=== PATIENT | female | born 1930 | race Caucasian/White ===

== ENCOUNTER 2017-10-16 16:10 | Emergency (ER) | payer MEDICARE, OTHER ==
[2017-10-16] MEDS ORDERED: IBUPROFEN 600 MG TABLET PO ONE (16:45)
--- NOTE | 2017-10-16 16:49 | ER Document Report ---
ED General - General Chief Complaint: Fall Stated Complaint: LEG PAIN Time Seen by Provider: 10/16/17 16:22 Mode of Arrival: Ambulatory Information source: Patient Notes: 86 yr female hx of dementia presents with complaints of left leg pain chronically which worsened after a fall last night. pt dneies any fevers or chills, denies any back pain. pt admits to laying on the ground overnight due ot pain family member notes this is all chronic TRAVEL OUTSIDE OF THE [place] IN LAST 30 DAYS: No - HPI Onset: This morning Onset/Duration: Sudden Quality of pain: Achy Severity: Mild Pain Level: Denies Associated symptoms: None Exacerbated by: Denies Relieved by: Denies Similar symptoms previously: No Recently seen / treated by doctor: No - Related Data Allergies/Adverse Reactions: No Known Allergies Allergy (Verified 10/16/17 16:24) Past Medical History - Social History Smoking Status: Unknown if Ever Smoked Cigarette use (# per day): No Chew tobacco use (# tins/day): No Smoking Education Provided: No Family History: Reviewed & Not Pertinent Patient has suicidal ideation: No Patient has homicidal ideation: No - Past Medical History Cardiac Medical History: Reports: Hx Hypercholesterolemia, Hx Hypertension Renal/ Medical History: Denies: Hx Peritoneal Dialysis Past Surgical History: Reports: Hx Appendectomy, Hx Cholecystectomy - Immunizations Hx Diphtheria, Pertussis, Tetanus Vaccination: Yes Review of Systems - Review of Systems Notes: REVIEW OF SYSTEMS: CONSTITUTIONAL : Denies fever, chills, or sweats. Denies recent illness. EENT: Denies eye, ear, throat, or mouth pain or symptoms. Denies nasal or sinus congestion or discharge. Denies throat, tongue, or mouth swelling or difficulty swallowing. CARDIOVASCULAR: Denies chest pain. Denies palpitations or racing or irregular heart beat. Denies ankle edema. RESPIRATORY: Denies cough, cold, or chest congestion. Denies shortness of breath, difficulty breathing, or wheezing. GASTROINTESTINAL: Denies abdominal pain or distention. Denies nausea, vomiting , or diarrhea. Denies blood in vomitus, stools, or per rectum. Denies black, tarry stools. Denies constipation. GENITOURINARY: Denies difficulty urinating, painful urination, burning, frequency, blood in urine, or discharge. FEMALE GENITOURINARY: Denies vaginal bleeding, heavy or abnormal periods, irregular periods. Denies vaginal discharge or odor. MUSCULOSKELETAL: Left hip pain SKIN: Denies rash, lesions or sores. HEMATOLOGIC : Denies easy bruising or bleeding. LYMPHATIC: Denies swollen, enlarged glands. NEUROLOGICAL: Denies confusion or altered mental status. Denies passing out or loss of consciousness. Denies dizziness or lightheadedness. Denies headache. Denies weakness or paralysis or loss of use of either side. Denies problems with gait or speech. Denies sensory loss, numbness, or tingling. Denies seizures. PSYCHIATRIC: Denies anxiety or stress. Denies depression, suicidal ideation, or homicidal ideation. ALL OTHER SYSTEMS REVIEWED AND NEGATIVE. PHYSICAL EXAMINATION: GENERAL: Well-appearing, well-nourished and in no acute distress. HEAD: Atraumatic, normocephalic. EYES: Pupils equal round and reactive to light, extraocular movements intact, conjunctiva are normal. ENT: Nares patent, oropharynx clear without exudates. Moist mucous membranes. NECK: Normal range of motion, supple without lymphadenopathy LUNGS: Breath sounds clear to auscultation bilaterally and equal. No wheezes rales or rhonchi. HEART: Regular rate and rhythm without murmurs ABDOMEN: Soft, nontender, nondistended abdomen. No guarding, no rebound. No masses appreciated. Female : deferred Musculoskeletal: Normal range of motion, no pitting or edema. No cyanosis. Mild tenderness of left hip NEUROLOGICAL: Cranial nerves grossly intact. Normal speech, normal gait. Normal sensory, motor exams PSYCH: Normal mood, normal affect. SKIN: Warm, Dry, normal turgor, no rashes or lesions noted. Dictation was performed using [employer] voice recognition software Physical Exam - Vital signs Vitals: Resp Pulse Ox 15 98 10/16/17 16:17 10/16/17 16:17 Course - Re-evaluation Re-evalutation: 10/16/17 16:48 Patient's presentation is quite benign family member states this is her baseline as stated that I will treat the patient for her pain and perform some imaging as well as lab work to evaluate for rhabdo since she was laying on the floor and other causes of weakness 10/16/17 22:24 Lab work noted no significant abnormality, given that this is her baseline and pain resolved with Motrin I will discharge home with close follow-up imaging also noted no fracture patient was able to bear weight After performing a Medical Screening Examination, I estimate there is LOW risk for INTRACRANIAL HEMORRHAGE, UNSTABLE SPINE FRACTURE, CENTRAL CORD SYNDROME, CAUDA EQUINA, THORACIC AORTIC DISSECTION, PNEUMOTHORAX, PERFORATED BOWEL, RUPTURED ABDOMINAL AORTIC ANEURYSM, ACUTE TENDON RUPTURE, COMPARTMENT SYNDROME, or OPEN FRACTURE, thus I consider the discharge disposition reasonable. Also, there is no evidence or peritonitis, sepsis, or toxicity. I have reevaluated this patient multiple times and no significant life threatening changes are noted. The patient and I have discussed the diagnosis and risks, and we agree with discharging home to follow-up with their primary doctor with the understanding that symptoms and presentations can change. We also discussed returning to the Emergency Department immediately if new or worsening symptoms occur. We have discussed the symptoms which are most concerning (e.g., bloody stool, fever, changing or worsening pain, vomiting) that necessitate immediate return. - Vital Signs Vital signs: Temp Pulse Resp BP Pulse Ox 19 153/54 H 93 10/16/17 18:33 10/16/17 18:33 10/16/17 18:33 - Laboratory Result Diagrams: 10/16/17 17:14 10/16/17 17:14 Laboratory results interpreted by me: 10/16/17 10/16/17 17:14 17:14 Seg Neutrophils % 87.6 H Lymphocytes % 6.1 L Absolute Neutrophils 8.6 H Potassium 3.4 L Calcium 10.3 H Alkaline Phosphatase 147 H Creatine Kinase 144 H - Diagnostic Test Radiology reviewed: Image reviewed, Reports reviewed Discharge - Discharge Clinical Impression: Left hip pain Hypertension Qualifiers: Hypertension type: essential hypertension Qualified Code(s): I10 - Essential ( primary) hypertension Condition: Stable Disposition: HOME, SELF-CARE Instructions: Contusion ([facility]) Referrals: HARINDER SANTIAGO MD [Primary Care Provider] - Follow up tomorrow
--- NOTE | 2017-10-16 17:21 | RADIOLOGY REPORT (SQ) ---
EXAM DESCRIPTION: HIP LEFT AP/LATERAL COMPLETED DATE/TIME: 10/16/2017 5:08 pm REASON FOR STUDY: fall COMPARISON: None. NUMBER OF VIEWS: Two views. TECHNIQUE: AP pelvis and additional frog-leg view of the left hip. LIMITATIONS: None. FINDINGS: MINERALIZATION: Normal. LEFT HIP: No fracture or dislocation. No worrisome bone lesions. RIGHT HIP: No fracture or dislocation. No worrisome bone lesions. PUBIS AND ISCHIUM: No fracture. PELVIS: No fracture. SACRUM: No fracture or dislocation. No worrisome bone lesions. LOWER LUMBAR SPINE: Degenerative changes lower lumbar spine. SOFT TISSUES: No findings. OTHER: No other significant finding. IMPRESSION: NEGATIVE STUDY OF THE LEFT HIP AND PELVIS. NO RADIOGRAPHIC EVIDENCE OF ACUTE INJURY. TECHNICAL DOCUMENTATION: JOB ID: [id number] [employer]- All Rights Reserved
[2017-10-16 17:35] LABS: ABSOLUTE BASOPHILS # (AUTO) 0.1 10^3/uL (0.0-0.2); ABSOLUTE EOSINOPHILS # (AUTO) 0.1 10^3/uL (0.0-0.6); ABSOLUTE LYMPHOCYTES (AUTO) 0.6 10^3/uL (0.5-4.7); ABSOLUTE MONOCYTES (AUTO) 0.5 10^3/uL (0.1-1.4); ABSOLUTE NEUT (AUTO) 8.6 10^3/uL (1.7-8.2); BASOPHILS % (AUTO) 0.8 % (0-2); EOSINOPHILS % (AUTO) 0.8 % (0-6); HEMATOCRIT 41.7 % (36.0-47.0); HEMOGLOBIN 14.3 g/dL (12.0-15.5); LYMPHOCYTES % (AUTO) 6.1 % (13-45); MEAN CORPUSCULAR HEMOGLOBIN 30.2 pg (27.0-33.4); MEAN CORPUSCULAR HGB CONC 34.3 g/dL (32.0-36.0); MEAN CORPUSCULAR VOLUME 88 fl (80-97); MONOCYTES % (AUTO) 4.7 % (3-13); PLATELET COUNT 256 10^3/uL (150-450); RED BLOOD COUNT 4.73 10^6/uL (3.72-5.28); RED CELL DISTRIBUTION WIDTH 12.2 % (11.5-14.0); SEGMENTED NEUTROPHILS % (AUTO) 87.6 % (42-78); TOTAL CELLS COUNTED % (AUTO) 100 %; WHITE BLOOD COUNT 9.9 10^3/uL (4.0-10.5)
[2017-10-16 17:54] LABS: ALANINE AMINOTRANSFERASE 23 U/L (9-52); ALBUMIN 4.4 g/dL (3.5-5.0); ALKALINE PHOSPHATASE 147 U/L (38-126); ANION GAP 10 (5-19); ASPARTATE AMINO TRANSFERASE 30 U/L (14-36); BILIRUBIN,DIRECT 0.4 mg/dL (0.0-0.4); BILIRUBIN,TOTAL 0.8 mg/dL (0.2-1.3); BLOOD UREA NITROGEN 17 mg/dL (7-20); CALCIUM 10.3 mg/dL (8.4-10.2); CARBON DIOXIDE 28 mmol/L (22-30); CHLORIDE 103 mmol/L (98-107); CREATINE KINASE 144 U/L (30-135); GLUCOSE 110 mg/dL (75-110); POTASSIUM 3.4 mmol/L (3.6-5.0); SODIUM 140.8 mmol/L (137-145)
[2017-10-16 18:45] VITALS: BP 153/54
== END 2017-10-16 19:11 | disposition home or self-care (01) ==
LOC: ER 16:10
DX: M25.552 Pain in left hip (principal); W19.XXXA Unspecified fall, initial encounter; G89.29 Other chronic pain; I10 Essential (primary) hypertension
CPT/HCPCS: 99284; 36415; 82553; 82550; 85025; 80053; 73502; A9270

== ENCOUNTER 2017-10-18 12:49 | Inpatient (IN) | payer MEDICARE, OTHER ==
--- NOTE | 2017-10-18 13:48 | ER Document Report ---
ED Fall - General Chief Complaint: Fall Stated Complaint: FALL HIP PAIN Time Seen by Provider: 10/18/17 13:15 Mode of Arrival: Ambulatory Information source: Patient Notes: Patient is an 86-year-old female who presents to the ER today for multiple falls over the past couple weeks including one today where she was on the floor beside her bed for an unknown amount of time when her granddaughter found her this morning. Patient did not even know she was on the floor. Patient states that she is scared to walk outside because she is scared she is going to fall and not be able to get up. Patient is complaining of bilateral hip pain from the fall apparently this morning but she is unsure when the pain started. She denies any numbness or tingling anywhere. Granddaughter states that she tried to walk her in the walker but that patient would not bear weight at all and that she was "like a sack of potatoes in my arms." Patient denies any dysuria, abdominal pain, cough, fever, chills or other symptoms. Patient denies any loss of bladder or bowel function. TRAVEL OUTSIDE OF THE [place] IN LAST 30 DAYS: No - Related data Allergies/Adverse Reactions: No Known Allergies Allergy (Verified 10/16/17 16:24) Past Medical History - General Information source: Patient - Social History Smoking Status: Unknown if Ever Smoked Family History: Reviewed & Not Pertinent Patient has suicidal ideation: No Patient has homicidal ideation: No - Past Medical History Cardiac Medical History: Reports: Hx Hypercholesterolemia, Hx Hypertension Renal/ Medical History: Denies: Hx Peritoneal Dialysis Past Surgical History: Reports: Hx Appendectomy, Hx Cholecystectomy - Immunizations Hx Diphtheria, Pertussis, Tetanus Vaccination: Yes Review of Systems - Review of Systems Constitutional: No symptoms reported EENT: No symptoms reported Cardiovascular: No symptoms reported Respiratory: No symptoms reported Gastrointestinal: No symptoms reported Genitourinary: No symptoms reported Female Genitourinary: No symptoms reported Musculoskeletal: See HPI Skin: No symptoms reported Hematologic/Lymphatic: No symptoms reported Neurological/Psychological: No symptoms reported Physical Exam - Vital signs Vitals: Temp Pulse Resp BP Pulse Ox 97.9 F 90 20 142/48 H 100 10/18/17 13:02 10/18/17 13:02 10/18/17 13:02 10/18/17 13:02 10/18/17 13:02 - Notes Notes: PHYSICAL EXAMINATION: GENERAL: Chronically ill-appearing, but in no acute distress. HEAD: Atraumatic, normocephalic. EYES: Pupils equal round and reactive to light, extraocular movements intact, sclera anicteric, conjunctiva are normal. NECK: Normal range of motion, supple without lymphadenopathy LUNGS: CTAB and equal. No wheezes rales or rhonchi. HEART: Regular rate and rhythm without murmurs ABDOMEN: Soft, no tenderness. No guarding, no rebound BACK: no vertebral tenderness, normal ROM GI/: no CVA tenderness EXTREMITIES: Normal range of motion but with pain at the hips, tender to bilateral lateral hips, no pitting edema. No cyanosis. NEUROLOGICAL: Cranial nerves grossly intact. Normal sensory/motor exams. PSYCH:flat affect SKIN: Warm, Dry, normal turgor, no rashes or lesions noted Course - Re-evaluation Re-evalutation: 10/18/17 18:24 Lab work is really unremarkable today with a normal white blood cell count, normal bilateral hip and pelvis x-ray, normal CT of the head, normal urinalysis without signs of infection. Patient is unable to get up and bear weight however and daughter is uncomfortable taking her home because she cannot care for her and is scared that she is going to fall be down for an unknown amount of time at any time. It is still unclear as to why patient did not even realize she was on the floor this morning. Patient does not have a diagnosis of dementia. Dr. Britton agrees to admit patient at this time for overall weakness, falls - Vital Signs Vital signs: Temp Pulse Resp BP Pulse Ox 97.9 F 90 20 142/48 H 100 10/18/17 13:02 10/18/17 13:02 10/18/17 13:02 10/18/17 13:02 10/18/17 13:02 - Laboratory Result Diagrams: 10/18/17 14:47 10/18/17 14:47 Laboratory results interpreted by me: 10/18/17 10/18/17 14:47 14:47 Seg Neutrophils % 80.6 H Lymphocytes % 9.4 L Potassium 3.3 L BUN 22 H Alkaline Phosphatase 150 H Discharge - Discharge Clinical Impression: Weakness, Falls frequently, Inability to bear weight Condition: Stable Disposition: ADMITTED INPATIENT Admitting Provider: Hospitalist - Dr. Britton Unit Admitted: Medical Floor
--- NOTE | 2017-10-18 14:21 | RADIOLOGY REPORT (SQ) ---
EXAM DESCRIPTION: CT HEAD WITHOUT COMPLETED DATE/TIME: 10/18/2017 2:14 pm REASON FOR STUDY: fall, ams, pain COMPARISON: 06/30/2013 TECHNIQUE: Axial images acquired through the brain without intravenous contrast. Images reviewed wi th bone, brain and subdural windows. Images stored on PACS. All CT scanners at this facility use dose modulation, iterative reconstruction, and/or weight based d osing when appropriate to reduce radiation dose to as low as reasonably achievable (ALARA). [facility]: Dose Right [facility]: CareDose [facility]: Dose Right [facility]: Teradose 4D [facility]: Breaker RADIATION DOSE: mGy. LIMITATIONS: None. FINDINGS: VENTRICLES: Prominent. CEREBRUM: No masses. No hemorrhage. No midline shift. Areas of low density in the white matter mos t likely due to chronic micro-vascular ischemic change. No evidence for acute infarction. CEREBELLUM: No masses. No hemorrhage. No alteration of density. No evidence for acute infarction. EXTRAAXIAL SPACES: Age-related involutional change. No fluid collections. No masses. ORBITS AND GLOBE: No intra- or extraconal masses. Normal contour of globe without masses. CALVARIUM: No fracture. PARANASAL SINUSES: No fluid or mucosal thickening. SOFT TISSUES: No mass or hematoma. OTHER: No other significant finding. IMPRESSION: CHRONIC CHANGES OF ATROPHY AND MICROVASCULAR ISCHEMIA. NO ACUTE PROCESS. EVIDENCE OF ACUTE STROKE: NO. TECHNICAL DOCUMENTATION: JOB ID: [id number] Quality ID # [id number]: Final reports with documentation of one or more dose reduction techniques (e.g., Au tomated exposure control, adjustment of the mA and/or kV according to patient size, use of iterative reconstruction technique) 2010 [employer]- All Rights Reserved
--- NOTE | 2017-10-18 14:45 | RADIOLOGY REPORT (SQ) ---
EXAM DESCRIPTION: CHEST SINGLE VIEW COMPLETED DATE/TIME: 10/18/2017 2:37 pm REASON FOR STUDY: fall, ams, pain COMPARISON: June 2013 EXAM PARAMETERS: NUMBER OF VIEWS: One view. TECHNIQUE: Single frontal radiographic view of the chest acquired. RADIATION DOSE: NA LIMITATIONS: None. FINDINGS: LUNGS AND PLEURA: No opacities, masses or pneumothorax. No pleural effusion. MEDIASTINUM AND HILAR STRUCTURES: No masses. Contour normal. HEART AND VASCULAR STRUCTURES: Heart normal in size. Normal vasculature. BONES: No acute findings. HARDWARE: None in the chest. OTHER: No other significant finding. IMPRESSION: NO ACUTE RADIOGRAPHIC FINDING IN THE CHEST. TECHNICAL DOCUMENTATION: JOB ID: [id number] [employer]- All Rights Reserved
--- NOTE | 2017-10-18 14:46 | RADIOLOGY REPORT (SQ) ---
EXAM DESCRIPTION: HIP BILATERAL COMPLETED DATE/TIME: 10/18/2017 2:37 pm REASON FOR STUDY: fall, pain, ams COMPARISON: None. NUMBER OF VIEWS: Two views TECHNIQUE: AP pelvis and additional frog-leg view of both hips. LIMITATIONS: None. FINDINGS: MINERALIZATION: Normal. HIPS: No acute fracture or dislocation. No worrisome bone lesions. PELVIS AND SACRUM: No acute fracture or dislocation. No worrisome bone lesions. PUBIS AND ISCHIUM: No acute fracture. LOWER LUMBAR SPINE: No significant findings as visualized. SOFT TISSUES: No findings. OTHER: No other significant finding. IMPRESSION: NEGATIVE STUDY OF THE PELVIS AND HIPS. TECHNICAL DOCUMENTATION: JOB ID: [id number] [email or web address]- All Rights Reserved
[2017-10-18 15:08] LABS: ABSOLUTE BASOPHILS # (AUTO) 0.1 10^3/uL (0.0-0.2); ABSOLUTE EOSINOPHILS # (AUTO) 0.1 10^3/uL (0.0-0.6); ABSOLUTE LYMPHOCYTES (AUTO) 0.7 10^3/uL (0.5-4.7); ABSOLUTE MONOCYTES (AUTO) 0.5 10^3/uL (0.1-1.4); ABSOLUTE NEUT (AUTO) 6.2 10^3/uL (1.7-8.2); BASOPHILS % (AUTO) 1.2 % (0-2); EOSINOPHILS % (AUTO) 1.9 % (0-6); HEMATOCRIT 39.4 % (36.0-47.0); HEMOGLOBIN 13.6 g/dL (12.0-15.5); LYMPHOCYTES % (AUTO) 9.4 % (13-45); MEAN CORPUSCULAR HEMOGLOBIN 30.2 pg (27.0-33.4); MEAN CORPUSCULAR HGB CONC 34.5 g/dL (32.0-36.0); MEAN CORPUSCULAR VOLUME 87 fl (80-97); MONOCYTES % (AUTO) 6.9 % (3-13); PLATELET COUNT 271 10^3/uL (150-450); RED BLOOD COUNT 4.51 10^6/uL (3.72-5.28); RED CELL DISTRIBUTION WIDTH 12.6 % (11.5-14.0); SEGMENTED NEUTROPHILS % (AUTO) 80.6 % (42-78); TOTAL CELLS COUNTED % (AUTO) 100 %; WHITE BLOOD COUNT 7.6 10^3/uL (4.0-10.5)
[2017-10-18 15:24] LABS: ALANINE AMINOTRANSFERASE 22 U/L (9-52); ALBUMIN 3.7 g/dL (3.5-5.0); ALKALINE PHOSPHATASE 150 U/L (38-126); ANION GAP 9 (5-19); ASPARTATE AMINO TRANSFERASE 23 U/L (14-36); BILIRUBIN,DIRECT 0.4 mg/dL (0.0-0.4); BILIRUBIN,TOTAL 0.6 mg/dL (0.2-1.3); BLOOD UREA NITROGEN 22 mg/dL (7-20); CALCIUM 9.5 mg/dL (8.4-10.2); CARBON DIOXIDE 30 mmol/L (22-30); CHLORIDE 104 mmol/L (98-107); CREATINE KINASE 60 U/L (30-135); GLUCOSE 91 mg/dL (75-110); POTASSIUM 3.3 mmol/L (3.6-5.0); SODIUM 143.1 mmol/L (137-145); TOTAL PROTEIN 6.3 g/dL (6.3-8.2)
[2017-10-18 15:38] LABS: CREATINE KINASE MB 1.42 ng/mL (<4.55); TROPONIN I 0.018 ng/mL
[2017-10-18 17:14] LABS: APPEARANCE,URINE CLEAR; BILIRUBIN,URINE NEGATIVE (NEGATIVE); COLOR,URINE YELLOW; GLUCOSE, URINE NEGATIVE (NEGATIVE); KETONES,URINE NEGATIVE (NEGATIVE); LEUKOCYTE ESTERASE,URINE NEGATIVE (NEGATIVE); NITRITE,URINE NEGATIVE (NEGATIVE); PROTEIN,URINE NEGATIVE (NEGATIVE); URINE SPECIFIC GRAVITY 1.018; UROBILINOGEN,URINE NEGATIVE mg/dL (<2.0)
[2017-10-18 17:31] LABS: URINE AMPHETAMINES SCREEN NEGATIVE; URINE BARBITURATES SCREEN NEGATIVE; URINE COCAINE SCREEN NEGATIVE; URINE METHADONE SCREEN NEGATIVE; URINE PHENCYCLIDINE SCREEN NEGATIVE
[2017-10-18 17:47] LABS: URINE BENZODIAZEPINES SCREEN NEGATIVE; URINE MARIJUANA (THC) SCREEN NEGATIVE
[2017-10-18] MEDS ORDERED: NORMAL SALINE 1000 ML 1,000 ML IV ONE (18:16)
[2017-10-18] MEDS ORDERED: OXYCODONE-ACETAMINOPHEN 5-325 MG TABLET PO PRN (18:52)
[2017-10-18] MEDS ORDERED: ONDANSETRON HCL INJ/PF 4 MG/2 ML SDV IV PRN (18:52)
[2017-10-18] MEDS ORDERED: MAG HYDROX/AL HYDROX/SIMETH SUSP 30 ML UDCUP PO PRN (18:52)
--- NOTE | 2017-10-18 18:52 | PDOC H&P ---
History of Present Illness Admission Date/PCP: HARINDER SANTIAGO MD Patient complains of: Fall History of Present Illness: SANDRA GARDUNO is a 86 year old female has been experiencing an increased number of falls recently. The patient fell on Sunday. She came into the emergency department and was prescribed Motrin. Today, her granddaughter found her on the floor at home. The patient was confused. She did not remember falling. She was on the floor but thought that she was in her bed. When asked about the falls she states that she thinks that she can no longer bear weight because of pain. She has had chronic pain in the left lower extremity and in the left hip. She now has extreme pain in her buttock when she tries to move her left leg. She does not have any numbness or tingling. She has not lost her bowels or bladder. There is no report of her striking her head, but, her head CT is unremarkable. There is no recent trauma with the exception of the falls. She has not had any recent infections. She is now unable to bear weight. She will be admitted to the hospital for pain management and physical therapy. Past Medical History Cardiac Medical History: Reports: Hyperlipidema, Hypertension EENT Medical History: Reports: Cataracts Past Surgical History Past Surgical History: Reports: Appendectomy, Cholecystectomy Social History Smoking Status: Unknown if Ever Smoked Frequency of Alcohol Use: None Hx Recreational Drug Use: No Hx Prescription Drug Abuse: No - Advance Directive Resuscitation Status: Full Code Family History Family History: Reviewed & Not Pertinent Parental Family History Reviewed: Yes Children Family History Reviewed: Yes Sibling(s) Family History Reviewed.: Yes - Patient has no recollection of how long her parents lived. The granddaughter thinks that cancer runs in her grandmother's family but she is unsure. Medication/Allergy Home Medications: Lisinopril/Hydrochlorothiazide [Lisinopril-Hctz 10-12.5 mg Tab] 1 tab PO DAILY 10/18/17 Pravastatin Sodium [Pravachol] 40 mg PO DAILY 10/18/17 Allergies/Adverse Reactions: No Known Allergies Allergy (Verified 10/16/17 16:24) Review of Systems Constitutional: PRESENT: weakness Eyes: ABSENT: visual disturbances Ears: ABSENT: hearing changes Nose, Mouth, and Throat: ABSENT: as per HPI, headache(s), mouth pain, sore throat, vertigo, other Breasts: ABSENT: as per HPI, other Cardiovascular: ABSENT: as per HPI, chest pain, dyspnea on exertion, edema, orthropnea, palpitations, other Respiratory: ABSENT: cough, hemoptysis Gastrointestinal: ABSENT: as per HPI, abdominal pain, bloating, coffee ground emesis, constipation, diarrhea, dysphagia, heartburn, hematemesis, hematochezia , melena, nausea, vomiting, other Genitourinary: ABSENT: as per HPI, difficulty urinating, dysuria, hematuria, nocturia, other Musculoskeletal: PRESENT: back pain, muscle weakness Integumentary: ABSENT: as per HPI, diaphoresis, erythema, lesions, pruritus, rash, wounds, other Neurological: PRESENT: frequent falls Psychiatric: ABSENT: as per HPI, anxiety, depression, hallucinations, homidical ideation, suicidal ideation, other Endocrine: ABSENT: as per HPI, cold intolerance, flushing, heat intolerance, menstrual abnormalities, polydipsia, polyphagia, polyuria, other Hematologic/Lymphatic: ABSENT: as per HPI, easy bleeding, easy bruising, lymphadenopathy, other Allergic/Immunologic: ABSENT: as per HPI, seasonal rhinorrhea, other Physical Exam Vital Signs: Temp Pulse Resp BP Pulse Ox 97.9 F 90 20 142/48 H 100 10/18/17 13:02 10/18/17 13:02 10/18/17 13:02 10/18/17 13:02 10/18/17 13:02 Additional comments: Patient is an extremely delightful 86-year-old female. She appears to be of normal body weight. She is awake and alert. She is able to give me remote details but she does not remember the events that occurred this week with both of her falls. Her facial appearance is unremarkable with the exception of the fact that she is obviously had cataract surgery. Cranial nerves II through XII are otherwise intact. Her oropharynx is benign. Her lungs are clear to auscultation bilaterally. Her cardiac exam is regular without murmurs, gallops or rubs. The abdomen is soft and flat. Bowel sounds are present in all 4 quadrants. She does not have guarding or rebound noted and there are no hernias or masses present. She has a well-healed midline scar. The lower extremities are unremarkable. She does have some onychomycosis of the toes but there is no pitting edema. The skin exam demonstrates multiple seborrheic keratoses but is otherwise without any acute skin lesions or rashes. Patient has fairly good strength upper extremities. Her sensation is intact. Her strength is symmetrical. The lower extremities right leg has normal strength and tone but the left leg has decreased ability to dorsiflex the left foot. Apparently, this causes pain. The patient refused to get up to try to bear weight. She does have some pain over T12 but this is minimal. She does not have any pain over the trochanteric bursae or the psoas muscles or bursae. She is able to abduct her hips bilaterally. Results Laboratory Results: 10/18/17 14:47 10/18/17 14:47 10/18/17 10/18/17 10/18/17 14:47 14:47 16:15 WBC 7.6 RBC 4.51 Hgb 13.6 Hct 39.4 MCV 87 MCH 30.2 MCHC 34.5 RDW 12.6 Plt Count 271 Seg Neutrophils % 80.6 H Lymphocytes % 9.4 L Monocytes % 6.9 Eosinophils % 1.9 Basophils % 1.2 Absolute Neutrophils 6.2 Absolute Lymphocytes 0.7 Absolute Monocytes 0.5 Absolute Eosinophils 0.1 Absolute Basophils 0.1 Sodium 143.1 Potassium 3.3 L Chloride 104 Carbon Dioxide 30 Anion Gap 9 BUN 22 H Creatinine 0.90 Est GFR ( Amer) > 60 Est GFR (Non-Af Amer) > 60 Glucose 91 Calcium 9.5 Total Bilirubin 0.6 AST 23 ALT 22 Alkaline Phosphatase 150 H Total Protein 6.3 Albumin 3.7 Urine Color YELLOW Urine Appearance CLEAR Urine pH 5.0 Ur Specific [place] 1.018 Urine Protein NEGATIVE Urine Glucose (UA) NEGATIVE Urine Ketones NEGATIVE Urine Blood NEGATIVE Urine Nitrite NEGATIVE Ur Leukocyte Esterase NEGATIVE Urine WBC (Auto) 4 Urine RBC (Auto) 1 10/18/17 10/18/17 14:47 14:47 Creatine Kinase 60 CK-MB (CK-2) 1.42 Troponin I 0.018 Impressions: Chest X-Ray 10/18/17 13:48 IMPRESSION: NO ACUTE RADIOGRAPHIC FINDING IN THE CHEST. Head CT 10/18/17 13:48 IMPRESSION: CHRONIC CHANGES OF ATROPHY AND MICROVASCULAR ISCHEMIA. NO ACUTE PROCESS. EVIDENCE OF ACUTE STROKE: NO. Hip X-Ray 10/18/17 13:49 IMPRESSION: NEGATIVE STUDY OF THE PELVIS AND HIPS. Assessment & Plan - Diagnosis (1) Falls frequently Is this a current diagnosis for this admission?: Yes Plan: Patient is not stable for discharge to home. She will be admitted for pain control. Physical therapy will evaluate the patient. (2) Sciatic leg pain Is this a current diagnosis for this admission?: Yes Plan: I suspect that the patient has sciatic pain secondary to degenerative disc disease and arthritis. Again, she will be admitted for pain management and physical therapy. (3) Hyperlipemia Is this a current diagnosis for this admission?: Yes Plan: Continue statin (4) Elevated alkaline phosphatase level Is this a current diagnosis for this admission?: Yes (5) Hypokalemia Is this a current diagnosis for this admission?: Yes Plan: Likely from hydrochlorothiazide. Will replace. Patient patient may need supplemental potassium on a daily basis. (6) Inability to bear weight Is this a current diagnosis for this admission?: Yes Plan: Appears to be secondary to pain. No acute fracture has been identified. (7) Hypertension Qualifiers: Hypertension type: essential hypertension Qualified Code(s): I10 - Essential (primary) hypertension Is this a current diagnosis for this admission?: Yes Plan: Continue lisinopril with hydrochlorothiazide. - Time Time Spent: 30 to 50 Minutes - Inpatient Certification Medical Necessity: Need for Neurological Checks, Need for Pain Control, Risk of Complication if Not Cared For in Hospital - Plan Summary Plan Summary: The patient will likely need greater than 2 midnights for inpatient care. I anticipate that she will likely need subacute rehab upon discharge.
[2017-10-18] MEDS ORDERED: TRAMADOL HCL 50 MG TABLET PO PRN (18:57)
[2017-10-18] MEDS ORDERED: ACETAMINOPHEN 325 MG TABLET PO PRN (18:59)
[2017-10-18] MEDS ORDERED: POTASSIUM CHLORIDE 10 MEQ TABLET.SA PO ONE (23:00)
[2017-10-19 08:16] LABS: ANION GAP 8 (5-19); BLOOD UREA NITROGEN 18 mg/dL (7-20); CALCIUM 9.2 mg/dL (8.4-10.2); CARBON DIOXIDE 28 mmol/L (22-30); CHLORIDE 108 mmol/L (98-107); GLUCOSE 100 mg/dL (75-110); PHOSPHORUS 3.1 mg/dL (2.5-4.5); POTASSIUM 3.7 mmol/L (3.6-5.0); SODIUM 144.2 mmol/L (137-145)
[2017-10-19] MEDS ORDERED: (PENDING PHARMACY ID) (Pravastatin Sodium [Pravachol] 40 MG) PO SCH (10:00)
[2017-10-19] MEDS ORDERED: (PENDING PHARMACY ID) (Lisinopril/Hydrochlorothiazide [Lisinopril-Hctz 10-12.5 Mg Tab] 1 T PO SCH (10:00)
[2017-10-19] MEDS: HYDROCHLOROTHIAZIDE 12.5 MG CAPSULE PO SCH (11:08)
--- NOTE | 2017-10-19 11:08 | EKG REPORT ---
SEVERITY:- ABNORMAL ECG - SINUS RHYTHM LVH WITH IVCD AND SECONDARY REPOL ABNRM : Confirmed by: Linda San 19-Oct-2017 11:08:11
[2017-10-19] MEDS: LISINOPRIL 10 MG TABLET PO SCH (11:09)
--- NOTE | 2017-10-19 12:15 | PDOC PROGRESS REPORT ---
Subjective Progress Note for:: 10/19/17 Subjective:: The patient is unable to ambulate again today. I asked her to sit up at the side of the bed. She was able to move both of her lower extremities, but, she still appeared to be in severe pain. Otherwise, she has no complaints. She has no respiratory complaints, cardiac complaints, GI complaints or complaints. When I asked her where the pain is, today she is pointing over her hips, laterally, but not her anterior thighs. Reason For Visit: FREQUENT FALLS Physical Exam Vital Signs: Temp Pulse Resp BP Pulse Ox 98.2 F 75 16 146/54 H 98 10/18/17 21:21 10/18/17 21:21 10/18/17 21:21 10/18/17 21:21 10/18/17 21:21 Intake & Output 10/18/17 10/19/17 10/20/17 06:59 06:59 06:59 Intake Total 123 Output Total 200 Balance -77 Weight 54.4 kg Additional comments: The patient is an elderly female. She does not appear to be toxic or in any distress. Her cognition is normal. She can understand and follow commands. Her facial appearance is unremarkable. Her lungs are clear to auscultation bilaterally. Her cardiac exam is regular without murmurs, gallops or rubs. The abdomen is soft, flat and benign. The lower extremities are unremarkable. She does not have any edema present. The skin is warm dry and intact. She does have seborrheic keratoses present which appear to be chronic. The patient does not have any pain over the greater trochanters bilaterally. She is able to move her legs without assistance. She was able to scoot herself to the side of the bed and sit up without assistance but this obviously led to pain. She does not have any pain over her lower spine. Today, she denies having pain radiating down into her buttock. Results Laboratory Results: 10/19/17 06:17 10/19/17 10/19/17 06:17 06:17 Sodium 144.2 Potassium 3.7 Chloride 108 H Carbon Dioxide 28 Anion Gap 8 BUN 18 Creatinine 0.73 Est GFR ( Amer) > 60 Est GFR (Non-Af Amer) > 60 Glucose 100 Calcium 9.2 Phosphorus 3.1 Magnesium 2.2 TSH 2.87 Impressions: Chest X-Ray 10/18/17 13:48 IMPRESSION: NO ACUTE RADIOGRAPHIC FINDING IN THE CHEST. Head CT 10/18/17 13:48 IMPRESSION: CHRONIC CHANGES OF ATROPHY AND MICROVASCULAR ISCHEMIA. NO ACUTE PROCESS. EVIDENCE OF ACUTE STROKE: NO. Hip X-Ray 10/18/17 13:49 IMPRESSION: NEGATIVE STUDY OF THE PELVIS AND HIPS. Assessment & Plan - Diagnosis (1) Falls frequently Is this a current diagnosis for this admission?: Yes Plan: Patient is not stable for discharge to home. She will be admitted for pain control. Physical therapy will evaluate the patient. (2) Sciatic leg pain Is this a current diagnosis for this admission?: Yes Plan: I suspect that the patient has sciatic pain secondary to degenerative disc disease and arthritis. Again, she will be admitted for pain management and physical therapy. Today, the patient is not complaining of buttock pain, however I still think that her pain is attributed to her lower spine. I have ordered spine films. I will also try to give the patient a short course of nonsteroidal anti-inflammatory drugs. (3) Hyperlipemia Is this a current diagnosis for this admission?: Yes Plan: Continue statin (4) Elevated alkaline phosphatase level Is this a current diagnosis for this admission?: Yes Plan: This will need f/u after discharge. The patient has no acute abdominal symptoms. I am not going to order abdominal us as this is not related to her current admission. (5) Hypokalemia Is this a current diagnosis for this admission?: Yes Plan: Likely from hydrochlorothiazide. Replaced. Patient patient may need supplemental potassium on a daily basis. (6) Inability to bear weight Is this a current diagnosis for this admission?: Yes Plan: Appears to be secondary to pain. No acute fracture has been identified. See further recommendations above. (7) Hypertension Qualifiers: Hypertension type: essential hypertension Qualified Code(s): I10 - Essential (primary) hypertension Is this a current diagnosis for this admission?: Yes Plan: Continue lisinopril with hydrochlorothiazide. - Time Time Spent with patient: 15-24 minutes - Inpatient Certification Medical Necessity: Need for Neurological Checks, Need for Pain Control - Plan Summary Plan Summary: She will remain hospitalized until her treatment plan has been finalized with pain control and physical therapy. I anticipate a discharge to rehabilitation for short-term care.
[2017-10-19] MEDS ORDERED: IBUPROFEN 600 MG TABLET PO ONE (13:30)
--- NOTE | 2017-10-19 14:06 | RADIOLOGY REPORT (SQ) ---
EXAM DESCRIPTION: L SPINE WHOLE COMPLETED DATE/TIME: 10/19/2017 1:32 pm REASON FOR STUDY: Pain/fall COMPARISON: None. NUMBER OF VIEWS: Five views including obliques. TECHNIQUE: AP, lateral, oblique, and sacral radiographic images acquired of the lumbar spine. LIMITATIONS: Overlying bowel gas. FINDINGS: There is depression of the superior endplate of L1 and L 2. Multilevel spondylosis. Vacu um disc at L4-5. Sacrum is intact. IMPRESSION: Compression fractures L1 and L2 superior endplates of uncertain chronicity. Consider co rrelation with MRI or bone scan. TECHNICAL DOCUMENTATION: JOB ID: [id number] [employer]- All Rights Reserved
[2017-10-19] MEDS: IBUPROFEN 600 MG TABLET PO SCH (17:14)
[2017-10-19] MEDS: ATORVASTATIN CALCIUM 10 MG TABLET PO SCH (22:19)
[2017-10-19] MEDS: FAMOTIDINE 20 MG TABLET PO SCH (22:19)
[2017-10-20 05:28] LABS: ANION GAP 9 (5-19); BLOOD UREA NITROGEN 25 mg/dL (7-20); CARBON DIOXIDE 29 mmol/L (22-30); CHLORIDE 106 mmol/L (98-107); GLUCOSE 98 mg/dL (75-110); POTASSIUM 3.9 mmol/L (3.6-5.0); SODIUM 143.5 mmol/L (137-145)
[2017-10-20] MEDS: IBUPROFEN 600 MG TABLET PO SCH ×3 (08:00→17:00)
[2017-10-20] MEDS: HYDROCHLOROTHIAZIDE 12.5 MG CAPSULE PO SCH (10:34)
[2017-10-20] MEDS: LISINOPRIL 10 MG TABLET PO SCH (10:34)
[2017-10-20] MEDS: FAMOTIDINE 20 MG TABLET PO SCH ×2 (10:35→21:10)
--- NOTE | 2017-10-20 10:35 | RADIOLOGY REPORT (SQ) ---
EXAM DESCRIPTION: MRI LUMBAR SPINE WITHOUT COMPLETED DATE/TIME: 10/20/2017 10:09 am REASON FOR STUDY: Compression fx at L1 and 2 COMPARISON: Correlation made to radiographs from 10/19/2017 TECHNIQUE: Sagittal and Axial imaging includes T1, T2, STIR and gradient echo sequences. Coronal T2/ HASTE imaging. LIMITATIONS: None. FINDINGS: VISUALIZED UPPER ABDOMEN: Limited evaluation. No acute or suspicious findings suggested. SEGMENTATION: No transitional anatomy. The lowest well-developed disc space is labeled L5-S1. ALIGNMENT: Alignment is normal. Mild rightward curvature. VERTEBRAE: Intact. BONE MARROW: Overall there is heterogeneous marrow signal which is likely within normal limits for pa tient's age. There is focal marrow edema involving the anterior aspect of the S2 level with linear h ypointense T1 and T2 line suspicious for sacral insufficiency fracture as seen on series 2, image 10, series 4, image 10, and series 300, image 10 additional active endplate change noted at the L4-L5 le aracelis. DISC SIGNAL: Multilevel disc desiccation with loss of height most severe at L4-L5 and L5-S1. POSTERIOR ELEMENTS: Generally intact. No pars defect evident. HARDWARE: None in the spine. CORD AND CONUS: Normal in size and signal intensity. Conus at the appropriate level. SOFT TISSUES: No aortic aneurysm seen. No bulky retroperitoneal adenopathy or mass. No paraspinal mas s or fluid. L1-L2: Broad-based disc bulging without significant spinal canal stenosis or neural foraminal narrowi ng. L2-L3: Broad-based disc bulging along with mild ligamentum flavum hypertrophy and facet arthropathy. No significant spinal canal stenosis or neural foraminal narrowing. L3-L4: Mild broad-based disc bulging with ligamentum flavum hypertrophy and facet arthropathy. No si gnificant spinal canal stenosis or neural foraminal narrowing. L4-L5: Severe disc desiccation with broad-based bulging along with left greater than right ligamentum flavum hypertrophy and facet arthropathy which results in mild to moderate spinal canal stenosis, se roula left neural foraminal narrowing, and mild right neural foraminal narrowing. L5-S1: Severe disc desiccation with broad-based bulging eccentric to the left along with ligamentum f lavum hypertrophy and facet arthropathy. There is moderate to severe left-sided neural foraminal mickey rowing and mild to moderate right neural foraminal narrowing. LOWER THORACIC: Incompletely imaged. No stenosis seen. SACRUM: Visualized upper sacrum intact. OTHER: No other significant findings. IMPRESSION: MR FINDINGS SUSPICIOUS FOR SACRAL INSUFFICIENCY FRACTURE AT THE S2 LEVEL WHICH IS INCOMP LETELY EVALUATED ON THIS STUDY. CORRELATE WITH LEVEL OF PAIN. ADVANCED MULTILEVEL DEGENERATIVE CHANGE OF THE LUMBAR SPINE MOST SEVERE AT THE L4-L5 AND L5-S1 LEVELS WHERE THERE IS MODERATE TO SEVERE LEFT-SIDED NEURAL FORAMINAL NARROWING WITH PROBABLE IMPINGEMENT OF THE EXITING NERVE ROOTS. CORRELATE WITH RADICULOPATHY. AND NO HIGH-GRADE SPINAL CANAL STENOSIS. NO ACUTE LUMBAR COMPRESSION FRACTURE. TECHNICAL DOCUMENTATION: JOB ID: [id number] [employer]- All Rights Reserved
[2017-10-20] MEDS ORDERED: ONDANSETRON HCL INJ/PF 4 MG/2 ML SDV ONE (15:05)
[2017-10-20] MEDS ORDERED: OXYCODONE HCL IR 5 MG TABLET PO PRN (15:05)
[2017-10-20] MEDS ORDERED: TRAMADOL HCL 50 MG TABLET PO PRN (15:14)
--- NOTE | 2017-10-20 16:35 | RADIOLOGY REPORT (SQ) ---
EXAM DESCRIPTION: SACRUM AND COCCYX COMPLETED DATE/TIME: 10/20/2017 4:17 pm REASON FOR STUDY: eval for fracture COMPARISON: None. FINDINGS: Three views sacrum and coccyx. Limiting osteopenia. Limiting overlying bowel gas and stool. Lower lumbar spondylosis. No displaced fracture identified. IMPRESSION: Grossly negative study allowing for limiting osteopenia and overlying bowel gas/stool. TECHNICAL DOCUMENTATION: JOB ID: [id number]
[2017-10-20] MEDS: ACETAMINOPHEN 325 MG TABLET PO SCH (17:49)
--- NOTE | 2017-10-20 18:42 | PDOC PROGRESS REPORT ---
Subjective Progress Note for:: 10/20/17 Subjective:: strength is improving, pain is still significant in low mid back, she has been able to sit up and eat, she cannot walk on her own due to pain. No CP or SOB, no fever or chills, mild constipation, no dysuria, has some nausea and mild emesis intermittantly. Full ROS perfromed adn negative aside from those things noted. I have reviewed her labs and pertinent diagnostic studies today. Reason For Visit: FREQUENT FALLS,SCIATIC LEG PAIN,HYPOKALEMIA Physical Exam Vital Signs: Temp Pulse Resp BP Pulse Ox 98.4 F 70 18 135/49 H 93 10/20/17 15:46 10/20/17 15:46 10/20/17 15:46 10/20/17 15:46 10/20/17 15:46 Intake & Output 10/19/17 10/20/17 10/21/17 06:59 06:59 06:59 Intake Total 123 510 13 Output Total 200 1375 Balance -77 -865 13 Weight 54.4 kg 58.9 kg General appearance: PRESENT: mild distress, thin Head exam: PRESENT: atraumatic, normocephalic Eye exam: PRESENT: conjunctiva pink, EOMI Mouth exam: PRESENT: moist, neck supple, tongue midline Respiratory exam: PRESENT: clear to auscultation flavio. ABSENT: rales, wheezes Pulses: PRESENT: normal radial pulses Vascular exam: PRESENT: normal capillary refill GI/Abdominal exam: PRESENT: normal bowel sounds, soft. ABSENT: distended, guarding, tenderness Rectal exam: PRESENT: deferred Extremities exam: ABSENT: pedal edema, tenderness Musculoskeletal exam: PRESENT: normal inspection, other - point tenderness to palpation at upper sacrum Neurological exam: PRESENT: alert, awake, oriented to person, oriented to place , oriented to situation, reflexes normal. ABSENT: motor sensory deficit Psychiatric exam: PRESENT: appropriate affect. ABSENT: anxious Skin exam: PRESENT: dry, intact, warm Results Laboratory Results: 10/20/17 03:39 10/20/17 03:39 Sodium 143.5 Potassium 3.9 Chloride 106 Carbon Dioxide 29 Anion Gap 9 BUN 25 H Creatinine 0.90 Est GFR ( Amer) > 60 Est GFR (Non-Af Amer) > 60 Glucose 98 Calcium 10.0 Impressions: Chest X-Ray 10/18/17 13:48 IMPRESSION: NO ACUTE RADIOGRAPHIC FINDING IN THE CHEST. Head CT 10/18/17 13:48 IMPRESSION: CHRONIC CHANGES OF ATROPHY AND MICROVASCULAR ISCHEMIA. NO ACUTE PROCESS. EVIDENCE OF ACUTE STROKE: NO. Hip X-Ray 10/18/17 13:49 IMPRESSION: NEGATIVE STUDY OF THE PELVIS AND HIPS. Lumbar Spine X-Ray 10/19/17 00:00 IMPRESSION: Compression fractures L1 and L2 superior endplates of uncertain chronicity. Consider correlation with MRI or bone scan. Lumbar Spine MRI 10/20/17 00:00 IMPRESSION: MR FINDINGS SUSPICIOUS FOR SACRAL INSUFFICIENCY FRACTURE AT THE S2 LEVEL WHICH IS INCOMPLETELY EVALUATED ON THIS STUDY. CORRELATE WITH LEVEL OF PAIN. ADVANCED MULTILEVEL DEGENERATIVE CHANGE OF THE LUMBAR SPINE MOST SEVERE AT THE L4-L5 AND L5-S1 LEVELS WHERE THERE IS MODERATE TO SEVERE LEFT-SIDED NEURAL FORAMINAL NARROWING WITH PROBABLE IMPINGEMENT OF THE EXITING NERVE ROOTS. CORRELATE WITH RADICULOPATHY. AND NO HIGH-GRADE SPINAL CANAL STENOSIS. NO ACUTE LUMBAR COMPRESSION FRACTURE. Sacrum and Coccyx X-Ray 10/20/17 00:00 IMPRESSION: Grossly negative study allowing for limiting osteopenia and overlying bowel gas/stool. Assessment & Plan - Diagnosis (1) Falls frequently Is this a current diagnosis for this admission?: Yes Plan: Patient, per granddaughter, has chronic degenerative changes in her back. She has developed worsening weakness and more frequent falls. She fell at home on Sunday. Due to acute pain in the lower back she was unable to get up. That pain is improving some but it is significant enough so that she cannot bear weight or walk safely on her own. Physical therapy has been ordered. Patient may need acute rehab. (2) Inability to bear weight Is this a current diagnosis for this admission?: Yes Plan: Physical therapy is ongoing. Patient has been on scheduled ibuprofen and I have added scheduled acetaminophen [id number] mg p.o. every 6 hours for 2 days. (3) Sciatic leg pain Is this a current diagnosis for this admission?: Yes Plan: Patient will continue on her scheduled Motrin 600 mg p.o. every 8 hours and also have added scheduled Tylenol as above. (4) Hypertension Qualifiers: Hypertension type: essential hypertension Qualified Code(s): I10 - Essential (primary) hypertension Is this a current diagnosis for this admission?: Yes Plan: Continue her lisinopril and hydrochlorothiazide. Her blood pressure is intermittently slightly elevated most likely due to acute pain. (5) Acute pain Plan: Improving overall. We will continue scheduled Motrin, have added scheduled Tylenol as already dictated. Patient has tramadol available for moderate pain and low-dose oxycodone available for severe pain. - Time Time Spent with patient: 35 or more minutes Anticipated discharge: Acute Rehab Within: within 48 hours - Inpatient Certification Medical Necessity: Need Close Monitoring Due to Risk of Patient Decompensation, Risk of Complication if Not Cared For in Hospital
[2017-10-20] MEDS: ATORVASTATIN CALCIUM 10 MG TABLET PO SCH (21:10)
[2017-10-21] MEDS: ONDANSETRON HCL INJ/PF 4 MG/2 ML SDV IV PRN ×4 (04:34→22:28)
[2017-10-21] MEDS: ACETAMINOPHEN 325 MG TABLET PO SCH ×4 (04:59→17:57)
[2017-10-21] MEDS ORDERED: HYDRALAZINE HCL INJ/PF 20 MG/1 ML SDV IV PRN (06:50)
--- NOTE | 2017-10-21 09:19 | RADIOLOGY REPORT (SQ) ---
EXAM DESCRIPTION: ABDOMEN 2 VIEWS COMPLETED DATE/TIME: 10/21/2017 9:05 am REASON FOR STUDY: vomiting COMPARISON: None. NUMBER OF VIEWS: Two views. TECHNIQUE: Supine and decubitus radiographic images of the abdomen acquired. LIMITATIONS: None. FINDINGS: FREE AIR: No pneumoperitoneum. LUNG BASES: Clear. BOWEL GAS PATTERN: Moderate amount of fecal material throughout the colon to the rectum. Scattered s mall bowel gas. Nonspecific bowel-gas pattern. CALCIFICATIONS: Atherosclerotic calcification of abdominal aorta and iliac vessels. SOFT TISSUES: No gross mass or suggestion of organomegaly. HARDWARE: None in the abdomen. BONES: Thoracic and lumbar spondylosis. OTHER: No other significant finding. IMPRESSION: NONSPECIFIC BOWEL-GAS PATTERN. TECHNICAL DOCUMENTATION: JOB ID: [id number] SC-[id number] 2010 [employer]- All Rights Reserved
[2017-10-21] MEDS ORDERED: LANSOPRAZOLE 30 MG TAB.RAP.DR PO ONE (10:45)
[2017-10-21] MEDS ORDERED: SENNOSIDES/DOCUSATE 8.6-50 MG 1 EACH TABLET PO ONE (10:45)
[2017-10-21] MEDS ORDERED: BISACODYL 10 MG SUPP.RECT PR ONE (11:00)
[2017-10-21] MEDS: IBUPROFEN 600 MG TABLET PO SCH ×3 (11:02→16:44)
[2017-10-21] MEDS: LISINOPRIL 10 MG TABLET PO SCH (11:04)
[2017-10-21] MEDS: HYDROCHLOROTHIAZIDE 12.5 MG CAPSULE PO SCH (11:05)
[2017-10-21] MEDS: FAMOTIDINE 20 MG TABLET PO SCH ×2 (11:05→22:13)
[2017-10-21] MEDS: LANSOPRAZOLE 30 MG TAB.RAP.DR PO SCH (16:44)
[2017-10-21] MEDS: SENNOSIDES/DOCUSATE 8.6-50 MG 1 EACH TABLET PO SCH (17:57)
--- NOTE | 2017-10-21 21:18 | PDOC PROGRESS REPORT ---
Subjective Progress Note for:: 10/21/17 Subjective:: Patient has abdominal discomfort and some nausea and vomiting which is keeping her from being able to eat well. No chest pain or difficulty breathing. No fevers or chills. Her pain in her back is improving. He is able to sit up on the side of her bed without too much difficulty. The remainder of the review of systems is performed and is negative. I reviewed her labs and her diagnostic studies that are pertinent today. Reason For Visit: FREQUENT FALLS,SCIATIC LEG PAIN,N/V CONSTIPATION Physical Exam Vital Signs: Temp Pulse Resp BP Pulse Ox 98.5 F 78 18 136/43 H 98 10/21/17 20:08 10/21/17 20:08 10/21/17 20:08 10/21/17 20:08 10/21/17 20:08 Intake & Output 10/20/17 10/21/17 10/22/17 06:59 06:59 06:59 Intake Total 510 1053 890 Output Total 1375 300 291 Balance -865 753 599 Weight 58.9 kg 57.5 kg General appearance: PRESENT: no acute distress, cooperative Eye exam: PRESENT: conjunctiva pink Mouth exam: PRESENT: moist Respiratory exam: PRESENT: clear to auscultation flavio. ABSENT: rales, rhonchi, wheezes Cardiovascular exam: PRESENT: RRR. ABSENT: systolic murmur Pulses: PRESENT: normal radial pulses GI/Abdominal exam: PRESENT: hypoactive bowel sounds, soft, other - I will distention without rebound or guarding. Rectal exam: PRESENT: deferred Extremities exam: ABSENT: pedal edema Musculoskeletal exam: PRESENT: normal inspection Neurological exam: PRESENT: alert, awake, oriented to person, oriented to place , oriented to situation, CN II-XII grossly intact Psychiatric exam: PRESENT: appropriate affect. ABSENT: anxious Skin exam: PRESENT: dry, intact, warm Results Laboratory Results: 10/20/17 03:39 Impressions: Chest X-Ray 10/18/17 13:48 IMPRESSION: NO ACUTE RADIOGRAPHIC FINDING IN THE CHEST. Head CT 10/18/17 13:48 IMPRESSION: CHRONIC CHANGES OF ATROPHY AND MICROVASCULAR ISCHEMIA. NO ACUTE PROCESS. EVIDENCE OF ACUTE STROKE: NO. Hip X-Ray 10/18/17 13:49 IMPRESSION: NEGATIVE STUDY OF THE PELVIS AND HIPS. Lumbar Spine X-Ray 10/19/17 00:00 IMPRESSION: Compression fractures L1 and L2 superior endplates of uncertain chronicity. Consider correlation with MRI or bone scan. Lumbar Spine MRI 10/20/17 00:00 IMPRESSION: MR FINDINGS SUSPICIOUS FOR SACRAL INSUFFICIENCY FRACTURE AT THE S2 LEVEL WHICH IS INCOMPLETELY EVALUATED ON THIS STUDY. CORRELATE WITH LEVEL OF PAIN. ADVANCED MULTILEVEL DEGENERATIVE CHANGE OF THE LUMBAR SPINE MOST SEVERE AT THE L4-L5 AND L5-S1 LEVELS WHERE THERE IS MODERATE TO SEVERE LEFT-SIDED NEURAL FORAMINAL NARROWING WITH PROBABLE IMPINGEMENT OF THE EXITING NERVE ROOTS. CORRELATE WITH RADICULOPATHY. AND NO HIGH-GRADE SPINAL CANAL STENOSIS. NO ACUTE LUMBAR COMPRESSION FRACTURE. Sacrum and Coccyx X-Ray 10/20/17 00:00 IMPRESSION: Grossly negative study allowing for limiting osteopenia and overlying bowel gas/stool. Abdomen X-Ray 10/21/17 06:50 IMPRESSION: NONSPECIFIC BOWEL-GAS PATTERN. Assessment & Plan - Diagnosis (1) Falls frequently Is this a current diagnosis for this admission?: Yes Plan: Patient, per granddaughter, has chronic degenerative changes in her back. She has developed worsening weakness and more frequent falls. She fell at home on Sunday. Due to acute pain in the lower back she was unable to get up. That pain is improving some but it is significant enough so that she cannot bear weight or walk safely on her own. Physical therapy has been ordered. Patient may need acute rehab (2) Sciatic leg pain Is this a current diagnosis for this admission?: Yes Plan: Patient will continue on her scheduled Motrin 600 mg p.o. every 8 hours and also have added scheduled Tylenol.. (3) Hypertension Qualifiers: Hypertension type: essential hypertension Qualified Code(s): I10 - Essential (primary) hypertension Is this a current diagnosis for this admission?: Yes Plan: Continue hydrochlorothiazide and lisinopril. Patient has acute pain her blood pressure spikes but then comes back down to normal. (4) Acute pain Plan: Secondary to possibly acute sacral insufficiency fracture. She also has significant degenerative changes in her lower spine. We are using scheduled Tylenol and ibuprofen for several days and will monitor her basic metabolic panel and CBC. She also has tramadol for moderate pain and low-dose oxycodone for severe pain. Pain is improving. Physical therapy continues. She will likely need inpatient rehab. (5) Nausea and vomiting Is this a current diagnosis for this admission?: Yes Plan: I believe this is secondary to her constipation. Acute pain could be in a role. She has Zofran as needed nausea and vomiting. We are also working on her constipation, please see below. (6) Constipation Is this a current diagnosis for this admission?: Yes Plan: Unclear etiology. I started patient on senna 1 tab p.o. twice daily. She received a Dulcolax suppository today. If can amount of stool seen on plain film of the abdomen done today. She is starting to stool. - Time Time Spent with patient: 35 or more minutes Medications reviewed and adjusted accordingly: Yes Anticipated discharge: Acute Rehab Within: within 48 hours - Inpatient Certification Medical Necessity: Significant Comorbidiites Make Outpatient Treatment Too Risky , Need Close Monitoring Due to Risk of Patient Decompensation, Risk of Complication if Not Cared For in Hospital
[2017-10-21] MEDS: ATORVASTATIN CALCIUM 10 MG TABLET PO SCH (22:13)
[2017-10-22] MEDS: ACETAMINOPHEN 325 MG TABLET PO SCH ×3 (01:01→13:36)
[2017-10-22] MEDS: LANSOPRAZOLE 30 MG TAB.RAP.DR PO SCH ×2 (07:17→18:10)
[2017-10-22 07:25] LABS: HEMATOCRIT 36.8 % (36.0-47.0); HEMOGLOBIN 12.9 g/dL (12.0-15.5); MEAN CORPUSCULAR HEMOGLOBIN 30.3 pg (27.0-33.4); MEAN CORPUSCULAR VOLUME 87 fl (80-97); PLATELET COUNT 288 10^3/uL (150-450); RED BLOOD COUNT 4.26 10^6/uL (3.72-5.28); RED CELL DISTRIBUTION WIDTH 12.2 % (11.5-14.0); WHITE BLOOD COUNT 7.5 10^3/uL (4.0-10.5)
[2017-10-22 07:49] LABS: ANION GAP 9 (5-19); BLOOD UREA NITROGEN 27 mg/dL (7-20); CALCIUM 9.5 mg/dL (8.4-10.2); CARBON DIOXIDE 31 mmol/L (22-30); CHLORIDE 102 mmol/L (98-107); GLUCOSE 100 mg/dL (75-110); POTASSIUM 3.3 mmol/L (3.6-5.0); SODIUM 141.6 mmol/L (137-145)
[2017-10-22] MEDS ORDERED: POTASSIUM CHLORIDE 20 MEQ/15 ML UDCUP PO ONE (08:19)
[2017-10-22] MEDS: ONDANSETRON HCL INJ/PF 4 MG/2 ML SDV IV PRN ×2 (08:47→19:17)
[2017-10-22] MEDS: IBUPROFEN 600 MG TABLET PO SCH ×3 (09:32→18:11)
[2017-10-22] MEDS: FAMOTIDINE 20 MG TABLET PO SCH (09:33)
[2017-10-22] MEDS: SENNOSIDES/DOCUSATE 8.6-50 MG 1 EACH TABLET PO SCH ×2 (09:34→18:10)
[2017-10-22] MEDS: HYDROCHLOROTHIAZIDE 12.5 MG CAPSULE PO SCH (09:37)
[2017-10-22] MEDS: LISINOPRIL 10 MG TABLET PO SCH (09:37)
--- NOTE | 2017-10-22 15:19 | PDOC PROGRESS REPORT ---
Subjective Progress Note for:: 10/22/17 Subjective:: The patient is an 86-year-old female with medical history significant for hyperlipidemia and hypertension who was admitted on 10/18/16 for frequent falls, sciatica, and inability to bear weight. She is found resting in bed comfortably sitting upright on room air eating her lunch. She states that she is feeling much better today. She does state that she feels well enough to be discharged to home however, understands that she needs to go to a [facility] facility for rehab. She states that she is pain-free while at rest and was able to ambulate to the restroom with a 1 person assist today. She denies chest pain, dyspnea, abdominal pain. Per nursing, the patient has had 2-3 episodes of low volume emesis today associated with medications. Reason For Visit: FREQUENT FALLS,SCIATIC LEG PAIN,N/V CONSTIPATION Physical Exam Vital Signs: Temp Pulse Resp BP Pulse Ox 98.4 F 72 18 146/47 H 96 10/22/17 11:58 10/22/17 11:58 10/22/17 11:58 10/22/17 11:58 10/22/17 11:58 Intake & Output 10/21/17 10/22/17 10/23/17 06:59 06:59 06:59 Intake Total 1053 890 Output Total 300 791 Balance 753 99 Weight 57.5 kg 58.9 kg General appearance: PRESENT: no acute distress, well-developed, well-nourished Head exam: PRESENT: atraumatic, normocephalic Eye exam: PRESENT: conjunctiva pink, EOMI, PERRLA. ABSENT: scleral icterus Ear exam: PRESENT: normal external ear exam Mouth exam: PRESENT: moist, tongue midline Neck exam: ABSENT: carotid bruit, JVD, lymphadenopathy, thyromegaly Respiratory exam: PRESENT: clear to auscultation flavio, symmetrical, unlabored. ABSENT: rales, rhonchi, wheezes Cardiovascular exam: PRESENT: RRR, +S1, +S2. ABSENT: diastolic murmur, rubs, systolic murmur Pulses: PRESENT: normal dorsalis pedis pul Vascular exam: PRESENT: normal capillary refill GI/Abdominal exam: PRESENT: normal bowel sounds, soft. ABSENT: distended, guarding, mass, organolmegaly, rebound, tenderness Rectal exam: PRESENT: deferred Extremities exam: PRESENT: full ROM. ABSENT: calf tenderness, clubbing, pedal edema Neurological exam: PRESENT: alert, awake, oriented to person, oriented to place , oriented to time, oriented to situation, CN II-XII grossly intact. ABSENT: motor sensory deficit Psychiatric exam: PRESENT: appropriate affect, normal mood. ABSENT: homicidal ideation, suicidal ideation Skin exam: PRESENT: dry, intact, warm. ABSENT: cyanosis, rash Results Laboratory Results: 10/22/17 07:09 10/22/17 07:09 10/22/17 10/22/17 07:09 07:09 WBC 7.5 RBC 4.26 Hgb 12.9 Hct 36.8 MCV 87 MCH 30.3 MCHC 35.0 RDW 12.2 Plt Count 288 Sodium 141.6 Potassium 3.3 L Chloride 102 Carbon Dioxide 31 H Anion Gap 9 BUN 27 H Creatinine 0.92 Est GFR ( Amer) > 60 Est GFR (Non-Af Amer) 58 L Glucose 100 Calcium 9.5 Impressions: Chest X-Ray 10/18/17 13:48 IMPRESSION: NO ACUTE RADIOGRAPHIC FINDING IN THE CHEST. Head CT 10/18/17 13:48 IMPRESSION: CHRONIC CHANGES OF ATROPHY AND MICROVASCULAR ISCHEMIA. NO ACUTE PROCESS. EVIDENCE OF ACUTE STROKE: NO. Hip X-Ray 10/18/17 13:49 IMPRESSION: NEGATIVE STUDY OF THE PELVIS AND HIPS. Lumbar Spine X-Ray 10/19/17 00:00 IMPRESSION: Compression fractures L1 and L2 superior endplates of uncertain chronicity. Consider correlation with MRI or bone scan. Lumbar Spine MRI 10/20/17 00:00 IMPRESSION: MR FINDINGS SUSPICIOUS FOR SACRAL INSUFFICIENCY FRACTURE AT THE S2 LEVEL WHICH IS INCOMPLETELY EVALUATED ON THIS STUDY. CORRELATE WITH LEVEL OF PAIN. ADVANCED MULTILEVEL DEGENERATIVE CHANGE OF THE LUMBAR SPINE MOST SEVERE AT THE L4-L5 AND L5-S1 LEVELS WHERE THERE IS MODERATE TO SEVERE LEFT-SIDED NEURAL FORAMINAL NARROWING WITH PROBABLE IMPINGEMENT OF THE EXITING NERVE ROOTS. CORRELATE WITH RADICULOPATHY. AND NO HIGH-GRADE SPINAL CANAL STENOSIS. NO ACUTE LUMBAR COMPRESSION FRACTURE. Sacrum and Coccyx X-Ray 10/20/17 00:00 IMPRESSION: Grossly negative study allowing for limiting osteopenia and overlying bowel gas/stool. Abdomen X-Ray 10/21/17 06:50 IMPRESSION: NONSPECIFIC BOWEL-GAS PATTERN. 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 She fell at home on Sunday and due to the acute pain in her lower back she was unable to get back up independently. Pain is resolving and she is now ambulatory with assistance for short distances. Physical therapy has been consulted; appreciate their evaluation recommendations. Anticipate that the patient will be discharged to SNF for acute rehabilitation once bed is available. (2) Acute pain Is this a current diagnosis for this admission?: Yes Plan: Improving. Secondary to possibly acute sacral insufficiency fracture. She is also noted to have significant degenerative changes in her lower spine. She is scheduled Tylenol and ibuprofen. Tramadol for pain. Oxycodone for severe breakthrough pain. Encourage nonpharmacological interventions and increased mobility with assistance. (3) Constipation Is this a current diagnosis for this admission?: Yes Plan: Unclear etiology. Significant amount of stool on plain film of the abdomen. The patient is on senna 1 tab p.o. twice daily. Will add daily MiraLAX. (4) Nausea and vomiting Qualifiers: Vomiting type: unspecified Is this a current diagnosis for this admission?: Yes Plan: Believed to be secondary to constipation. Low-volume nausea and vomiting. Per nursing, the patient is noted to have emesis with liquid potassium but appears to tolerate pills well. Tolerating lunch thus far. Pepcid twice daily. Zofran as needed for nausea/vomiting. Plan as above. (5) Sciatic leg pain Is this a current diagnosis for this admission?: Yes Plan: As above. (6) Hypertension Qualifiers: Hypertension type: essential hypertension Qualified Code(s): I10 - Essential (primary) hypertension Is this a current diagnosis for this admission?: Yes Plan: Continue licinopril/hctz. IV hydralazine as needed. - Time Time Spent with patient: 15-24 minutes Medications reviewed and adjusted accordingly: Yes Anticipated discharge: Acute Rehab Within: within 24 hours, when bed available
[2017-10-22] MEDS: ATORVASTATIN CALCIUM 10 MG TABLET PO SCH (21:06)
[2017-10-23] MEDS: LANSOPRAZOLE 30 MG TAB.RAP.DR PO SCH ×2 (06:51→17:17)
[2017-10-23 07:28] LABS: ANION GAP 10 (5-19); BLOOD UREA NITROGEN 30 mg/dL (7-20); CALCIUM 9.5 mg/dL (8.4-10.2); CARBON DIOXIDE 31 mmol/L (22-30); CHLORIDE 103 mmol/L (98-107); GLUCOSE 99 mg/dL (75-110); POTASSIUM 3.9 mmol/L (3.6-5.0); SODIUM 144.1 mmol/L (137-145)
[2017-10-23] MEDS: HYDROCHLOROTHIAZIDE 12.5 MG CAPSULE PO SCH (09:33)
[2017-10-23] MEDS: IBUPROFEN 600 MG TABLET PO SCH ×3 (09:33→17:17)
[2017-10-23] MEDS: POLYETHYLENE GLYCOL 3350 POWDER 17 GM/1 PACKET PO SCH (09:33)
[2017-10-23] MEDS: LISINOPRIL 10 MG TABLET PO SCH (09:33)
[2017-10-23] MEDS: SENNOSIDES/DOCUSATE 8.6-50 MG 1 EACH TABLET PO SCH ×2 (09:33→17:17)
--- NOTE | 2017-10-23 16:33 | PDOC PROGRESS REPORT ---
Subjective Progress Note for:: 10/23/17 Subjective:: SANDRA GARDUNO is an 86-year-old female with a past medical history significant for hyperlipidemia and hypertension who was admitted on 10/18/2016 for frequent falls, sciatica, and inability to bear weight. Patient evaluated during morning rounds, she was found resting in bed comfortably sitting upright. Patient states that she feels fine as long as she is in bed, but experiences significant back pain when she attempts to get up out of bed. Patient denies nausea, vomiting, weakness in her legs, paresthesia. Patient states she understands that she will need to go to acute rehab following discharge from [facility]. She is currently awaiting placement. Reason For Visit: FREQUENT FALLS,SCIATIC LEG PAIN,N/V CONSTIPATION Physical Exam Vital Signs: Temp Pulse Resp BP Pulse Ox 98.0 F 64 18 148/50 H 98 10/23/17 08:00 10/23/17 08:00 10/23/17 04:18 10/23/17 08:00 10/23/17 08:00 Intake & Output 10/22/17 10/23/17 10/24/17 06:59 06:59 06:59 Intake Total 890 90 Output Total 791 Balance 99 90 Weight 58.9 kg 59.5 kg Results Laboratory Results: 10/22/17 07:09 10/23/17 06:37 10/23/17 06:37 Sodium 144.1 Potassium 3.9 Chloride 103 Carbon Dioxide 31 H Anion Gap 10 BUN 30 H Creatinine 1.08 Est GFR ( Amer) 58 L Est GFR (Non-Af Amer) 48 L Glucose 99 Calcium 9.5 Impressions: Chest X-Ray 10/18/17 13:48 IMPRESSION: NO ACUTE RADIOGRAPHIC FINDING IN THE CHEST. Head CT 10/18/17 13:48 IMPRESSION: CHRONIC CHANGES OF ATROPHY AND MICROVASCULAR ISCHEMIA. NO ACUTE PROCESS. EVIDENCE OF ACUTE STROKE: NO. Hip X-Ray 10/18/17 13:49 IMPRESSION: NEGATIVE STUDY OF THE PELVIS AND HIPS. Lumbar Spine X-Ray 10/19/17 00:00 IMPRESSION: Compression fractures L1 and L2 superior endplates of uncertain chronicity. Consider correlation with MRI or bone scan. Lumbar Spine MRI 10/20/17 00:00 IMPRESSION: MR FINDINGS SUSPICIOUS FOR SACRAL INSUFFICIENCY FRACTURE AT THE S2 LEVEL WHICH IS INCOMPLETELY EVALUATED ON THIS STUDY. CORRELATE WITH LEVEL OF PAIN. ADVANCED MULTILEVEL DEGENERATIVE CHANGE OF THE LUMBAR SPINE MOST SEVERE AT THE L4-L5 AND L5-S1 LEVELS WHERE THERE IS MODERATE TO SEVERE LEFT-SIDED NEURAL FORAMINAL NARROWING WITH PROBABLE IMPINGEMENT OF THE EXITING NERVE ROOTS. CORRELATE WITH RADICULOPATHY. AND NO HIGH-GRADE SPINAL CANAL STENOSIS. NO ACUTE LUMBAR COMPRESSION FRACTURE. Sacrum and Coccyx X-Ray 10/20/17 00:00 IMPRESSION: Grossly negative study allowing for limiting osteopenia and overlying bowel gas/stool. Abdomen X-Ray 10/21/17 06:50 IMPRESSION: NONSPECIFIC BOWEL-GAS PATTERN. 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 The patient fell at home on 10/16 and due to the acute pain in her lower back she was unable to get back up independently. Pain is resolving and the patient is now ambulatory with assistance for short distances. PT OT has been consulted, appreciate their recommendations for intermediate facility. Discharge planning is working to get patient placed in acute rehab. (2) Acute pain Is this a current diagnosis for this admission?: Yes Plan: Secondary to acute sacral insufficiency fracture. She is also noted to have significant degenerative changes in her lower spine. Patient states she is mostly pain-free while she is in bed, only experiences pain while attempting to ambulate. Continue Tylenol, ibuprofen, and tramadol. Oxycodone for severe breakthrough pain. Encourage nonpharmacological interventions and increase mobility. (3) Constipation Qualifiers: Constipation type: unspecified constipation type Qualified Code(s): K59.00 - Constipation, unspecified Is this a current diagnosis for this admission?: Yes Plan: Unclear etiology. Significant amount of stool on plain film of the abdomen. Continue senna/docusate, and Miralax. (4) Nausea and vomiting Qualifiers: Vomiting type: unspecified Vomiting Intractability: unspecified Qualified Code(s): R11.2 - Nausea with vomiting, unspecified Is this a current diagnosis for this admission?: Yes Plan: Believed to be secondary to constipation. Patient denies episodes of nausea or vomiting today. Continue scheduled Pepcid, and as needed Zofran. (5) Sciatic leg pain Is this a current diagnosis for this admission?: Yes Plan: see above (6) Hypertension Qualifiers: Hypertension type: essential hypertension Qualified Code(s): I10 - Essential (primary) hypertension Is this a current diagnosis for this admission?: Yes Plan: Continue home medications: Lisinopril/HCTZ. PRN IV Hydralazine for SBP > 180 - Inpatient Certification Based on my medical assessment, after consideration of the patient's comorbidities, presenting symptoms, or acuity I expect that the services needed warrant INPATIENT care.: Yes I certify that my determination is in accordance with my understanding of Medicare's requirements for reasonable and necessary INPATIENT services [42 CFR 412.3e].: Yes Medical Necessity: Risk of Complication if Not Cared For in Hospital - Plan Summary Plan Summary: discharge to acute rehab
[2017-10-23] MEDS: ATORVASTATIN CALCIUM 10 MG TABLET PO SCH (22:27)
[2017-10-24] MEDS: LANSOPRAZOLE 30 MG TAB.RAP.DR PO SCH ×2 (05:15→17:57)
[2017-10-24] MEDS: IBUPROFEN 600 MG TABLET PO SCH ×3 (10:28→17:57)
[2017-10-24] MEDS: SENNOSIDES/DOCUSATE 8.6-50 MG 1 EACH TABLET PO SCH ×2 (10:29→17:58)
[2017-10-24] MEDS: LISINOPRIL 10 MG TABLET PO SCH (10:29)
[2017-10-24] MEDS: POLYETHYLENE GLYCOL 3350 POWDER 17 GM/1 PACKET PO SCH (10:29)
[2017-10-24] MEDS: HYDROCHLOROTHIAZIDE 12.5 MG CAPSULE PO SCH (10:32)
--- NOTE | 2017-10-24 11:45 | PDOC PROGRESS REPORT ---
Subjective Progress Note for:: 10/24/17 Subjective:: SANDRA GARDUNO is an 86-year-old female with a past medical history significant for hyperlipidemia and hypertension who was admitted on 10/18/2016 for frequent falls, sciatica, and inability to bear weight. Patient evaluated during morning rounds, she was found resting in bed comfortably sitting upright. Patient states that she feels fine as long as she is in bed, but experiences significant back pain when she attempts to get up out of bed. She is able to ambulate OOB to the bathroom with 1 person assistance. Patient denies nausea, vomiting, weakness in her legs, paresthesia. Patient states she understands that she will need to go to acute rehab following discharge from [facility]. She is currently awaiting placement. Reason For Visit: FREQUENT FALLS,SCIATIC LEG PAIN,N/V CONSTIPATION Physical Exam Vital Signs: Temp Pulse Resp BP Pulse Ox 97.3 F 68 16 130/46 H 98 10/24/17 07:50 10/24/17 07:50 10/24/17 07:50 10/24/17 07:50 10/24/17 07:50 Intake & Output 10/23/17 10/24/17 10/25/17 06:59 06:59 06:59 Intake Total 90 170 Balance 90 170 Weight 59.5 kg 56.9 kg General appearance: PRESENT: no acute distress, well-developed, well-nourished Head exam: PRESENT: atraumatic, normocephalic Eye exam: PRESENT: conjunctiva pink, EOMI, PERRLA. ABSENT: scleral icterus Ear exam: PRESENT: normal external ear exam Mouth exam: PRESENT: moist, tongue midline Neck exam: ABSENT: carotid bruit, JVD, lymphadenopathy, thyromegaly Respiratory exam: PRESENT: clear to auscultation flavio. ABSENT: rales, rhonchi, wheezes Cardiovascular exam: PRESENT: RRR. ABSENT: diastolic murmur, rubs, systolic murmur Pulses: PRESENT: normal dorsalis pedis pul Vascular exam: PRESENT: normal capillary refill GI/Abdominal exam: PRESENT: normal bowel sounds, soft. ABSENT: distended, guarding, mass, organolmegaly, rebound, tenderness Rectal exam: PRESENT: deferred Extremities exam: PRESENT: full ROM. ABSENT: calf tenderness, clubbing, pedal edema Musculoskeletal exam: PRESENT: ambulatory, other - mid/lower back pain when ambulating Neurological exam: PRESENT: alert, awake, oriented to person, oriented to place , oriented to time, oriented to situation. ABSENT: motor sensory deficit Psychiatric exam: PRESENT: appropriate affect, normal mood Skin exam: PRESENT: dry, intact, warm. ABSENT: cyanosis, rash Results Laboratory Results: 10/22/17 07:09 10/23/17 06:37 Impressions: Chest X-Ray 10/18/17 13:48 IMPRESSION: NO ACUTE RADIOGRAPHIC FINDING IN THE CHEST. Head CT 10/18/17 13:48 IMPRESSION: CHRONIC CHANGES OF ATROPHY AND MICROVASCULAR ISCHEMIA. NO ACUTE PROCESS. EVIDENCE OF ACUTE STROKE: NO. Hip X-Ray 10/18/17 13:49 IMPRESSION: NEGATIVE STUDY OF THE PELVIS AND HIPS. Lumbar Spine X-Ray 10/19/17 00:00 IMPRESSION: Compression fractures L1 and L2 superior endplates of uncertain chronicity. Consider correlation with MRI or bone scan. Lumbar Spine MRI 10/20/17 00:00 IMPRESSION: MR FINDINGS SUSPICIOUS FOR SACRAL INSUFFICIENCY FRACTURE AT THE S2 LEVEL WHICH IS INCOMPLETELY EVALUATED ON THIS STUDY. CORRELATE WITH LEVEL OF PAIN. ADVANCED MULTILEVEL DEGENERATIVE CHANGE OF THE LUMBAR SPINE MOST SEVERE AT THE L4-L5 AND L5-S1 LEVELS WHERE THERE IS MODERATE TO SEVERE LEFT-SIDED NEURAL FORAMINAL NARROWING WITH PROBABLE IMPINGEMENT OF THE EXITING NERVE ROOTS. CORRELATE WITH RADICULOPATHY. AND NO HIGH-GRADE SPINAL CANAL STENOSIS. NO ACUTE LUMBAR COMPRESSION FRACTURE. Sacrum and Coccyx X-Ray 10/20/17 00:00 IMPRESSION: Grossly negative study allowing for limiting osteopenia and overlying bowel gas/stool. Abdomen X-Ray 10/21/17 06:50 IMPRESSION: NONSPECIFIC BOWEL-GAS PATTERN. 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 The patient fell at home on 10/16 and due to the acute pain in her lower back she was unable to get back up independently. Pain is resolving and the patient is now ambulatory with assistance for short distances. PT OT has been consulted, appreciate their recommendations for [facility] facility. Discharge planning is working to get patient placed in acute rehab. (2) Acute pain Is this a current diagnosis for this admission?: Yes Plan: Secondary to acute sacral insufficiency fracture. She is also noted to have significant degenerative changes in her lower spine. Patient states she is mostly pain-free while she is in bed, only experiences pain while attempting to ambulate. Patient states she IS able to ambulate out of bed with 1 person assistance. Continue Tylenol, ibuprofen, and tramadol. Oxycodone for severe breakthrough pain. Encourage nonpharmacological interventions and increase mobility. (3) Constipation Qualifiers: Constipation type: unspecified constipation type Qualified Code(s): K59.00 - Constipation, unspecified Is this a current diagnosis for this admission?: Yes Plan: Unclear etiology. Significant amount of stool on plain film of the abdomen. Continue senna/docusate, and Miralax. (4) Nausea and vomiting Qualifiers: Vomiting type: unspecified Vomiting Intractability: unspecified Qualified Code(s): R11.2 - Nausea with vomiting, unspecified Is this a current diagnosis for this admission?: Yes Plan: Believed to be secondary to constipation. Patient denies episodes of nausea or vomiting today. Continue scheduled Pepcid, and as needed Zofran for N/V and docusate/senna and Miralax for constipation. (5) Sciatic leg pain Is this a current diagnosis for this admission?: Yes Plan: see above (6) Hypertension Qualifiers: Hypertension type: essential hypertension Qualified Code(s): I10 - Essential (primary) hypertension Is this a current diagnosis for this admission?: Yes Plan: Continue home medications: Lisinopril/HCTZ. PRN IV Hydralazine for SBP > 180 - Time Time Spent with patient: 15-24 minutes Medications reviewed and adjusted accordingly: Yes Anticipated discharge: Acute Rehab Within: within 24 hours - Inpatient Certification Based on my medical assessment, after consideration of the patient's comorbidities, presenting symptoms, or acuity I expect that the services needed warrant INPATIENT care.: Yes I certify that my determination is in accordance with my understanding of Medicare's requirements for reasonable and necessary INPATIENT services [42 CFR 412.3e].: Yes Medical Necessity: Risk of Complication if Not Cared For in Hospital - Plan Summary Plan Summary: discharge from [facility] to acute rehab. plan for patient to eventually get back to living independently at home.
[2017-10-24] MEDS: ATORVASTATIN CALCIUM 10 MG TABLET PO SCH (21:51)
[2017-10-25] MEDS: LANSOPRAZOLE 30 MG TAB.RAP.DR PO SCH (05:31)
[2017-10-25] MEDS: IBUPROFEN 600 MG TABLET PO SCH ×2 (08:34→12:11)
[2017-10-25] MEDS: POLYETHYLENE GLYCOL 3350 POWDER 17 GM/1 PACKET PO SCH (10:22)
[2017-10-25] MEDS: LISINOPRIL 10 MG TABLET PO SCH (10:23)
[2017-10-25] MEDS: SENNOSIDES/DOCUSATE 8.6-50 MG 1 EACH TABLET PO SCH (10:23)
[2017-10-25] MEDS: HYDROCHLOROTHIAZIDE 12.5 MG CAPSULE PO SCH (10:23)
--- NOTE | 2017-10-25 12:21 | PDOC DISCHARGE SUMMARY ---
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 The patient fell at home on 10/16 due to the acute pain in her lower back she was unable to get up independently. Pain is resolving and the patient is now ambulatory with assistance for short distances. PT/OT has been consulted, initiate their recommendation for assisted facility. Discharge planning has found placement in acute rehab. Plan to discharge patient to acute rehab today (2) Acute pain Is this a current diagnosis for this admission?: Yes Summary: Acute pain secondary to sacral spinal fracture. She is also noted to have significant degenerative changes in her lower spine. Patient states that she is mostly pain-free while she is in bed, only experiences pain while attempting to ambulate. Patient states she is able to ambulate out of bed with 1 person assistance. Continue Tylenol, ibuprofen, tramadol. Oxycodone for severe breakthrough pain. Encourage nonpharmacological interventions and increased mobility. (3) Constipation Is this a current diagnosis for this admission?: Yes Summary: Unclear etiology. Significant amount of stool on plain film of the abdomen. Continue senna, docusate, and MiraLAX. (4) Nausea and vomiting Is this a current diagnosis for this admission?: Yes Summary: Nausea and vomiting believed to be secondary to constipation. Patient denies episodes of nausea or vomiting within the last 48 hours. Continue scheduled Pepcid, as needed Zofran for nausea, docusate/senna and MiraLAX for constipation. (5) Hypertension Is this a current diagnosis for this admission?: Yes Summary: HTN is currently controlled on patient's home antihypertensive medications, lisinopril/HCTZ. - Additional Information Resuscitation Status: Full Code Home Medications: Lisinopril/Hydrochlorothiazide [Lisinopril-Hctz 10-12.5 mg Tab] 1 tab PO DAILY 10/18/17 Pravastatin Sodium [Pravachol] 40 mg PO DAILY 10/18/17 History of Present Illness History of Present Illness: SANDRA GARDUNO is a 86 year old female with a past medical history significant for hyperlipidemia and hypertension who was admitted on 10/18 for frequent falls , sciatica, and inability to bear weight. She has chronic degenerative changes to her back which has resulted in worsening weakness and more frequent falling. The patient fell at home on 10/16 to the acute pain in her lower back she was unable to get up independently. The patient was admitted to [facility] complaining of acute back pain, an MRI revealed an ACUTE INSUFFICIENCY FRACTURE. No surgical intervention required, only PT OT for rehabilitation. Physical Exam Vital Signs: Temp Pulse Resp BP Pulse Ox 97.6 F 73 16 114/47 L 99 10/25/17 07:24 10/25/17 07:24 10/25/17 07:24 10/25/17 07:24 10/25/17 07:24 Intake & Output 10/24/17 10/25/17 10/26/17 06:59 06:59 06:59 Intake Total 170 300 Balance 170 300 Weight 56.9 kg 58 kg General appearance: PRESENT: no acute distress, well-developed, well-nourished Head exam: PRESENT: atraumatic, normocephalic Eye exam: PRESENT: conjunctiva pink, EOMI, PERRLA. ABSENT: scleral icterus Ear exam: PRESENT: normal external ear exam Mouth exam: PRESENT: moist, tongue midline Neck exam: ABSENT: carotid bruit, JVD, lymphadenopathy, thyromegaly Respiratory exam: PRESENT: clear to auscultation flavio. ABSENT: rales, rhonchi, wheezes Cardiovascular exam: PRESENT: RRR. ABSENT: diastolic murmur, rubs, systolic murmur Pulses: PRESENT: normal dorsalis pedis pul Vascular exam: PRESENT: normal capillary refill GI/Abdominal exam: PRESENT: normal bowel sounds, soft. ABSENT: distended, guarding, mass, organolmegaly, rebound, tenderness Rectal exam: PRESENT: deferred Extremities exam: PRESENT: full ROM. ABSENT: calf tenderness, clubbing, pedal edema Musculoskeletal exam: PRESENT: ambulatory - WITH DIFFICULTY Neurological exam: PRESENT: alert, awake, oriented to person, oriented to place , oriented to time, oriented to situation. ABSENT: motor sensory deficit Skin exam: PRESENT: dry, intact, normal color, warm. ABSENT: cyanosis, rash Results Laboratory Results: 10/22/17 07:09 10/23/17 06:37 Impressions: Chest X-Ray 10/18/17 13:48 IMPRESSION: NO ACUTE RADIOGRAPHIC FINDING IN THE CHEST. Head CT 10/18/17 13:48 IMPRESSION: CHRONIC CHANGES OF ATROPHY AND MICROVASCULAR ISCHEMIA. NO ACUTE PROCESS. EVIDENCE OF ACUTE STROKE: NO. Hip X-Ray 10/18/17 13:49 IMPRESSION: NEGATIVE STUDY OF THE PELVIS AND HIPS. Lumbar Spine X-Ray 10/19/17 00:00 IMPRESSION: Compression fractures L1 and L2 superior endplates of uncertain chronicity. Consider correlation with MRI or bone scan. Lumbar Spine MRI 10/20/17 00:00 IMPRESSION: MR FINDINGS SUSPICIOUS FOR SACRAL INSUFFICIENCY FRACTURE AT THE S2 LEVEL WHICH IS INCOMPLETELY EVALUATED ON THIS STUDY. CORRELATE WITH LEVEL OF PAIN. ADVANCED MULTILEVEL DEGENERATIVE CHANGE OF THE LUMBAR SPINE MOST SEVERE AT THE L4-L5 AND L5-S1 LEVELS WHERE THERE IS MODERATE TO SEVERE LEFT-SIDED NEURAL FORAMINAL NARROWING WITH PROBABLE IMPINGEMENT OF THE EXITING NERVE ROOTS. CORRELATE WITH RADICULOPATHY. AND NO HIGH-GRADE SPINAL CANAL STENOSIS. NO ACUTE LUMBAR COMPRESSION FRACTURE. Sacrum and Coccyx X-Ray 10/20/17 00:00 IMPRESSION: Grossly negative study allowing for limiting osteopenia and overlying bowel gas/stool. Abdomen X-Ray 10/21/17 06:50 IMPRESSION: NONSPECIFIC BOWEL-GAS PATTERN. Status: Imported from PACS Qualifiers - * [facility] BEING DISCHARGED WITH ANY OF THE FOLLOWING DIAGNOSIS?: No Plan Discharge Plan: DISCHARGE TO ACUTE REHAB Time Spent: Less than 30 Minutes
[2017-10-25] MEDS ORDERED: NA PHOS,M-B/NA PHOS,DI-BA (ADULT) 133 ML ENEMA PR ONE (14:30)
[2017-10-25 16:13] VITALS: BP 109/49
== END 2017-10-25 16:30 | DRG 552 ==
LOC: ER 12:49 → EH 18:55 → OBSVTOIN 18:55 → INTOOBSV 18:55 → 4N 21:05 → 2S 10-20 21:55 → 2N 10-23 15:58 → 2S 10-23 16:01
PROVIDERS: ADMIT Family Medicine; ATTEND Family Medicine
DX: S32.10XA Unspecified fracture of sacrum, initial encounter for closed fracture (principal); W01.0XXA Fall on same level from slipping, tripping and stumbling without subsequent striking against object, initial encounter; Y92.009 Unspecified place in unspecified non-institutional (private) residence as the place of occurrence of the external cause; R52 Pain, unspecified; K59.00 Constipation, unspecified; I10 Essential (primary) hypertension; E78.00 Pure hypercholesterolemia, unspecified; L82.1 Other seborrheic keratosis; M51.16 Intervertebral disc disorders with radiculopathy, lumbar region; E87.6 Hypokalemia; Z79.899 Other long term (current) drug therapy; Z98.42 Cataract extraction status, left eye; Z98.41 Cataract extraction status, right eye; Z90.49 Acquired absence of other specified parts of digestive tract; Z80.9 Family history of malignant neoplasm, unspecified
CPT/HCPCS: 36415; 70450; 71045; 72110; 72148; 72220; 73522; 74019; 80048; 80053; 80307; 81001; 82550; 82553; 83735; 84100; 84443; 84484; 85025; 85027; 93005; 93010; 99285; G8978-GP; G8979-GP; J2405; J3490; J7030

== ENCOUNTER 2020-01-14 11:38 | Emergency (ER) | payer MEDICARE, OTHER ==
[2020-01-14 11:56] LABS: ABSOLUTE BASOPHILS # (AUTO) 0.1 10^3/uL (0.0-0.2); ABSOLUTE EOSINOPHILS # (AUTO) 0.1 10^3/uL (0.0-0.6); ABSOLUTE LYMPHOCYTES (AUTO) 1.9 10^3/uL (0.5-4.7); ABSOLUTE MONOCYTES (AUTO) 0.3 10^3/uL (0.1-1.4); ABSOLUTE NEUT (AUTO) 5.2 10^3/uL (1.7-8.2); BASOPHILS % (AUTO) 1.1 % (0-2); EOSINOPHILS % (AUTO) 0.9 % (0-6); HEMATOCRIT 45.4 % (36.0-47.0); HEMOGLOBIN 15.5 g/dL (12.0-15.5); LYMPHOCYTES % (AUTO) 25.6 % (13-45); MEAN CORPUSCULAR HEMOGLOBIN 31.3 pg (27.0-33.4); MEAN CORPUSCULAR HGB CONC 34.1 g/dL (32.0-36.0); MEAN CORPUSCULAR VOLUME 92 fl (80-97); MONOCYTES % (AUTO) 3.8 % (3-13); PLATELET COUNT 243 10^3/uL (150-450); RED BLOOD COUNT 4.94 10^6/uL (3.72-5.28); RED CELL DISTRIBUTION WIDTH 12.8 % (11.5-14.0); SEGMENTED NEUTROPHILS % (AUTO) 68.6 % (42-78); TOTAL CELLS COUNTED % (AUTO) 100 %; WHITE BLOOD COUNT 7.5 10^3/uL (4.0-10.5)
[2020-01-14 12:14] LABS: ALBUMIN 4.8 g/dL (3.5-5.0); ALKALINE PHOSPHATASE 95 U/L (38-126); ANION GAP 11 (5-19); ASPARTATE AMINO TRANSFERASE 31 U/L (14-36); BILIRUBIN,DIRECT 0.1 mg/dL (0.0-0.4); BILIRUBIN,TOTAL 0.9 mg/dL (0.2-1.3); BLOOD UREA NITROGEN 22 mg/dL (7-20); CALCIUM 9.7 mg/dL (8.4-10.2); CARBON DIOXIDE 27 mmol/L (22-30); CHLORIDE 99 mmol/L (98-107); GLUCOSE 271 mg/dL (75-110); POTASSIUM 3.7 mmol/L (3.6-5.0); TOTAL PROTEIN 7.8 g/dL (6.3-8.2)
--- NOTE | 2020-01-14 13:17 | ER Document Report ---
ED General - General Chief Complaint: Diarrhea Stated Complaint: RESPIRATORY Time Seen by Provider: 01/14/20 12:07 Primary Care Provider: HARINDER SANTIAGO MD [Primary Care Provider] - Follow up as needed Information source: Patient TRAVEL OUTSIDE OF THE [place] IN LAST 30 DAYS: No - HPI Notes: Patient comes in complaining of abdominal pain and diarrhea. She states this is been going on for 2 to 3 days. The abdominal pain is bilateral lower quadrant. It is crampy. It is mild to moderate in intensity. It appears to be intermittent. Nothing other makes it better or worse. She also states that she has had watery diarrhea during this time but without blood. No vomiting. She has had some decreased appetite. No fevers or known covert exposures. - Related Data Allergies/Adverse Reactions: No Known Allergies Allergy (Verified 10/16/17 16:24) Past Medical History - General Information source: Patient - Social History Smoking Status: Former Smoker Frequency of alcohol use: None Drug Abuse: None Family History: Reviewed & Not Pertinent Patient has homicidal ideation: No - Past Medical History Cardiac Medical History: Reports: Hx Hypercholesterolemia, Hx Hypertension Renal/ Medical History: Denies: Hx Peritoneal Dialysis Past Surgical History: Reports: Hx Appendectomy, Hx Cholecystectomy - Immunizations Hx Diphtheria, Pertussis, Tetanus Vaccination: Yes Review of Systems - Review of Systems Constitutional: Malaise, Weakness Cardiovascular: denies: Chest pain, Palpitations Respiratory: denies: Cough, Short of breath -: Yes All other systems reviewed and negative Physical Exam - Vital signs Vitals: Temp Pulse Resp BP Pulse Ox 97.9 F 87 20 142/58 H 95 01/14/20 11:42 01/14/20 11:42 01/14/20 11:42 01/14/20 11:42 01/14/20 11:42 Interpretation: Normal - General General appearance: Appears well, Alert - HEENT Head: Normocephalic, Atraumatic Eyes: Normal Pupils: PERRL - Respiratory Respiratory status: No respiratory distress Chest status: Nontender Breath sounds: Normal Chest palpation: Normal - Cardiovascular Rhythm: Regular Heart sounds: Normal auscultation Murmur: No - Abdominal Inspection: Normal Distension: No distension Bowel sounds: Hypoactive Tenderness: Tender - Mild diffuse tenderness to palpation Organomegaly: No organomegaly - Back Back: Normal, Nontender - Extremities General upper extremity: Normal inspection, Nontender, Normal color, Normal ROM, Normal temperature General lower extremity: Normal inspection, Nontender, Normal color, Normal ROM, Normal temperature, Normal weight bearing. No: Joanne's sign - Neurological Neuro grossly intact: Yes Cognition: Normal Orientation: AAOx4 [place] Coma Scale Eye Opening: Spontaneous [place] Coma Scale Verbal: Oriented Jagjit Coma Scale Motor: Obeys Commands Jagjit Coma Scale Total: 15 Speech: Normal Motor strength normal: LUE, RUE, LLE, RLE Sensory: Normal - Psychological Associated symptoms: Normal affect, Normal mood - Skin Skin Temperature: Warm Skin Moisture: Dry Skin Color: Normal Course - Re-evaluation Re-evalutation: 01/14/20 13:55 Patient is still awaiting results of CAT scan and urinalysis. I have turned the patient over to Dr. Meng. He will follow-up on these determine final disposition and plan. - Vital Signs Vital signs: Temp Pulse Resp BP Pulse Ox 97.9 F 87 20 142/58 H 95 01/14/20 11:55 01/14/20 11:42 01/14/20 11:42 01/14/20 11:42 01/14/20 11:42 - Laboratory Result Diagrams: 01/14/20 11:11 01/14/20 11:11 Laboratory results interpreted by me: 01/14/20 11:11 BUN 22 H Est GFR ( Amer) 58 L Est GFR (MDRD) Non-Af 48 L Glucose 271 H Discharge - Discharge Clinical Impression: Abdominal pain Qualifiers: Abdominal location: generalized Qualified Code(s): R10.84 - Generalized abdominal pain Diarrhea Qualifiers: Diarrhea type: unspecified type Qualified Code(s): R19.7 - Diarrhea, unspecified Condition: Stable Disposition: OTHER Referrals: HARINDER SANTIAGO MD [Primary Care Provider] - Follow up as needed
--- NOTE | 2020-01-14 14:08 | RADIOLOGY REPORT (SQ) ---
EXAM DESCRIPTION: CT ABD/PELVIS NO ORAL OR IV IMAGES COMPLETED DATE/TIME: 01/14/2020 1:49 pm REASON FOR STUDY: abd pain/diarrhea COMPARISON: None. TECHNIQUE: CT scan of the abdomen and pelvis performed without intravenous or oral contrast. Images reviewed with lung, soft tissue, and bone windows. Reconstructed coronal and sagittal MPR images revi ewed. All images stored on PACS. All CT scanners at this facility use dose modulation, iterative reconstruction, and/or weight based d osing when appropriate to reduce radiation dose to as low as reasonably achievable (ALARA). [facility]: Dose Right [facility]: CareDose [facility]: Dose Right [facility]: Teradose 4D [facility]: Smart [facility] RADIATION DOSE: CT Rad equipment meets quality standard of care and radiation dose reduction techniq ues were employed. CTDIvol: 4.8 mGy. DLP: 258 mGy-cm. LIMITATIONS: None. FINDINGS: LOWER CHEST: Severe atherosclerotic calcification of the mitral annulus. NON-CONTRASTED LIVER, SPLEEN, ADRENALS: Evaluation is limited due to the absence of intravenous contr ast. The subcentimeter hypodensity within segment 2 of the liver (image 13 of series 3) is too small to characterize. There is no CT evidence hepatic steatosis. The spleen is normal in size. There i s no adrenal mass. PANCREAS: No acute gross abnormality of the pancreas GALLBLADDER: The gallbladder is either surgically absent or contracted. RIGHT KIDNEY AND URETER: Evaluation is limited due to the absence of intravenous contrast. There is no hydronephrosis, nephrolithiasis, hydroureter or ureterolithiasis. LEFT KIDNEY AND URETER: Evaluation is limited due to the absence of intravenous contrast. There is n o hydronephrosis, nephrolithiasis, hydroureter or ureterolithiasis. AORTA AND RETROPERITONEUM: Atherosclerotic calcification of the abdominal aorta without aneurysmal di late station. There is no retrograde adenopathy, hemorrhage or mass. BOWEL AND PERITONEAL CAVITY: Colonic diverticulosis without diverticulitis. There is no bowel obstru ction, bowel wall thickening or pericolonic/ perienteric inflammation. There is no mesenteric adenop athy, free intraperitoneal fluid or mesenteric/ omental inflammation. APPENDIX: Unable to identify the appendix. PELVIS, BLADDER, AND ABDOMINAL WALL:Postoperative findings in the ventral abdominal wall. The urinar y bladder is distended and normal in appearance. There is no abnormality of the uterus or adnexa mani t is apparent on CT. BONES: Degenerative spondylosis and facet arthropathy of the lumbar spine with grade 1 anterolisthesi s of L3 relative to L4. OTHER: No other finding. IMPRESSION: No acute intra-abdominal abnormality. COMMENT: Quality ID # [id number]: Final reports with documentation of one or more dose reduction techniques (e.g., Automated exposure control, adjustment of the mA and/or kV according to patient size, use of iterative reconstruction technique) TECHNICAL DOCUMENTATION: JOB ID: [id number] 2010 [employer]- All Rights Reserved Reading location - IP/workstation name: [email or web address]-
[2020-01-14 15:48] LABS: APPEARANCE,URINE SLIGHTLY-CLOUDY; BILIRUBIN,URINE NEGATIVE (NEGATIVE); GLUCOSE, URINE 150 mg/dL (NEGATIVE); KETONES,URINE TRACE mg/dL (NEGATIVE); LEUKOCYTE ESTERASE,URINE NEGATIVE (NEGATIVE); NITRITE,URINE NEGATIVE (NEGATIVE); PROTEIN,URINE NEGATIVE (NEGATIVE); URINE SPECIFIC GRAVITY 1.019
[2020-01-14 15:50] LABS: COLOR,URINE YELLOW
[2020-01-14 16:58] VITALS: BP 128/44
== END 2020-01-14 16:58 | disposition other institution (70) ==
LOC: ER 11:38
DX: R19.7 Diarrhea, unspecified (principal); R10.84 Generalized abdominal pain; R10.817 Generalized abdominal tenderness; R63.0 Anorexia; R53.81 Other malaise; R53.1 Weakness; I10 Essential (primary) hypertension; Z87.891 Personal history of nicotine dependence; Z90.49 Acquired absence of other specified parts of digestive tract
CPT/HCPCS: 36415; 74176; 80053; 81001; 85025; 99284

== ENCOUNTER → 2020-01-27 | Outpatient (CLI) | payer MEDICARE, OTHER ==
--- NOTE | 2020-01-27 09:19 | RADIOLOGY REPORT (SQ) ---
EXAM DESCRIPTION: COOKIE SWALLOW IMAGES COMPLETED DATE/TIME: 01/27/2020 8:42 am REASON FOR STUDY: DYSPHAGIA, UNSPECIFIED R13.10 DYSPHAGIA, UNSPECIFIED dementia, coughing with meal s per COMPARISON: None. TECHNIQUE: Videofluoroscopic swallowing examination was performed in conjunction with speech patholo gy. Videofluoroscopic imaging was obtained and reviewed and these are the findings: RADIATION DOSE: 2 minutes 1 second of fluoroscopy was used for 1 images saved to PACS. LIMITATIONS: None FINDINGS: The patient was brought into the fluoro room and placed upright on a modified barium swall ow chair. The patient was then given multiple consistencies mixed with barium to swallow under live fluoroscopic video guidance. According to the Speech Pathologist there was laryngeal penetration wit h thin liquids. Delayed trace aspiration of the penetrated material. IMPRESSION: LARYNGEAL PENETRATION WITH TRACE ASPIRATION OF THE THIN LIQUIDS. PLEASE SEE SPEECH PATHO LOGIST REPORT FOR OTHER FINDINGS AND RECOMMENDATIONS. COMMENT: Quality ID [id number]: Final reports for procedures using fluoroscopy that document radiation exp osure indices, or exposure time and number of fluorographic images (if radiation exposure indices are not available) TECHNICAL DOCUMENTATION: JOB ID: [id number] 2010 [employer]- All Rights Reserved Reading location - IP/workstation name: [email or web address] [id number]
--- NOTE | 2020-01-27 10:57 | ST Modified Barium Swallow ---
Recommendation - Recommendations Recommendations: Recommend no diet changes at this time, however, patient should use aspiration precautions such as reduced rate of consumption and ensuring that the patient is fully upright for all PO intake. Medical Diagnoses - Medical Diagnoses Medical Diagnosis Description & ICD-10 Code(s): dysphagia R13.10 Other Medical Diagnoses/Co-Morbidities: per granddaughter: HTN; high cholesterol, dementia ST Modified Barium Swallow - General Date: 01/27/20 Referring Physician: Rachele Boston PA-C Risks/Precautions: Falls Date of Onset: 01/01/18 - approximate date of onset - History -: Medical - Patient arrived with her grand daughter who acted as primary historian. Patient reportedly has been having some pocketing of foods, as well as choking on saliva for about 2 years now, recently worsening. No significant history of pneumonia or bronchitis. Medications: lisinopril, prevastatin Allergies: none reported - Functional Status Prior Functional Status: INDEPENDENT: feeding Current Functional Limitations: feeding - Subjective Patient/caregiver goal(s): r/o aspiration Cognitive-Linguistic Function: Moderately Impaired Speech Intelligibility: WNL Current Nutritional Means: PO Current PO diet: Regular Current symptoms: Coughing, Pocketing Pain: Patient reports, 0/5 - Objective Assessment: Upright, Left Lateral - Food Trials Used Food trials used: Thin liquids, Pureed, Regular The patient: Was Able to Self Feed - Oral-Motor Skills Velo-pharyngeal function: Unremarkable Laryngeal Function: clear voicing - Assessment Oral prep: Mildly Impaired Labial closure: Adequate Leakage: None Mastication: Adequate Lingual Movement: Normal Oral stage: Mildly Impaired - some prolonged oral holding seen prior to initiation of the swallow, occasionally required cue to swallow bolus - Pharyngeal Stage Initiation of Pharyngeal Stage Reflex: Normal Decreased laryngeal elevation: Yes - mild Reduced Velopharyngeal Closure: no Reduced pressure generation: No reduced tongue-based retraction: No Pre-swallow pooling in valleculae: Mild Pre-Swallow pooling in pyriforms: Mild Reduced Thyro-Hyoid approximation: No Reduced epiglottic excursion: No Reduced pharyngeal peristalsis/contraction: No Post-Swallow Residuals: no residuals - Fall Risk Assessment Medications/Conditions that increase fall risks include: Antidepressants, sedatives, anti-arrhythmic, diuretic, benzodiazipenes, neuroleptics. BP regulation problems, cardiac problems, balance or gait deficits, neurological problems. Is patient considered at risk for falls: age appropriate Fall Risk Actions Taken: No action needed - Behavioral Observations During evaluation process patient: was pleasant, was cooperative - Treatment / Educational Needs: Treatment/Education Needs: Treatment consisted of patient education on the role of the Speech Pathologist. Patient's plan of care and golas were communicated as well as scheduling and attendance policies. Recommendations for initial home program were shared. Patient demonstrated understanding and verbalized agreement. - Impression/Summary Laryngeal Penetration: Yes - deep penetration of thin liquids was seen to the level of the vocal folds x2. There is a chance of aspiration of this penetrated material, delayed cough noted x1. Patient presents with: Oral stage dysphagia - mild, Pharyngeal stage dysph. - mild Risk of Aspiration: Mild Risk due to: oral holding pattern, inconsistent penetration of liquids Evaluation and Findings: Patient presents with mild oral and pharyngeal phase dysphagia at this time. Overall risk for aspiration is relatively low, however, should patient's underlying dementia progress, swallowing problems will likely worsen. - Recommendations Solid diet recommendations: Regular Liquid Diet Modification: Thin Strict aspiration precautions: Yes Pt/Family education and followup with MD: Yes Dysphagia therapy with TRIM CARPENTER: no Recommended techniques: Small Bites and Sips - Time Total Time: 30 - Plan of Care Strategies to optimize patient understanding include:: ongoing assessment of educational needs, implementation of educational strategies, and re-education. - - -: Thank you for the opportunity to work with this patient and his/her family. Should you have any questions about this patient's plan or progress, I can be reached at [phone].
== END ==
LOC: RAD 07:54
PROVIDERS: ATTEND Physician Assistant
DX: R13.10 Dysphagia, unspecified (principal)
CPT/HCPCS: 74230